=== PATIENT | female | born 1995 | race Caucasian/White ===

== ENCOUNTER 2017-05-27 09:43 | Observation (INO) ==
[2017-05-27] MEDS ORDERED: *HR* Morphine 2 MG/ML SYRINGE IVP ONE ×3 (10:11→11:17)
[2017-05-27] MEDS ORDERED: 0.9 % Sodium Chloride 1,000 ML IVC ONE ×3 (10:11→11:43)
[2017-05-27] MEDS ORDERED: Pantoprazole 40 MG VIAL IVP ONE (10:11)
[2017-05-27] MEDS ORDERED: Ondansetron 4 MG/2 ML VIAL IVP ONE (10:11)
--- NOTE | 2017-05-27 10:16 | Emergency Department Note ---
START Narrative - START START: I examined this patient and my medical decision-making was reviewed with the Resident Physician. I agree with the documented findings, disposition and treatment plan as described except to the extent set forth below. 22 yo F here for diffuse abd pain. will do workup with labs, urine, ct abdpelvis pain control
[2017-05-27 10:38] LABS: Basophils % 0.2 %; Eosinophils # 0.1 K/mcL (0.0-0.6); Eosinophils % 0.8 %; Hematocrit 41.1 % (35.3-44.9); Hemoglobin 13.3 g/dL (11.5-15.4); Immature Granulocytes % 0.3 % (0-4); Lymphocytes # 1.4 K/mcL (0.6-4.6); Lymphocytes % 10.5 %; Mean Corpuscular HGB Conc 32.4 g/dL (31.6-35.5); Mean Corpuscular Volume 83.4 fL (83.0-100.0); Mean Platelet Volume 9.9 fL (9.4-12.4); Monocytes # 0.5 K/mcL (0.0-1.3); Monocytes % 3.6 %; Neutrophils # 11.2 K/mcL (1.6-8.9); Platelet Count 261 K/mcL (140-400); Red Blood Count 4.93 M/mcL (3.82-4.97); Red Cell Distribution Width 13.6 % (11.5-14.5); Segmented Neutrophils % 84.6 %
[2017-05-27 10:51] LABS: BUN/Creatinine Ratio 13 (6-26); Bilirubin,Direct 0.1 mg/dL (0.0-0.5); Bilirubin,Total 0.3 mg/dL (0.2-1.2); Blood Urea Nitrogen 9 mg/dL (7-20); Calcium 9.2 mg/dL (8.6-10.8); Carbon Dioxide 21 mEq/L (19-29); Chloride 107 mEq/L (98-109); Glucose 88 mg/dL (70-99); Osmolality,Calculated 282 (280-300); Sodium 137 mEq/L (136-145); eGFR For African Americans > 60 (> 60); eGFR For Non-African Americans > 60 (> 60)
[2017-05-27 10:52] LABS: Alanine Aminotransferase 9 Units/L (0-55); Albumin 3.5 g/dL (3.5-5.0); Albumin/Globulin Ratio 1.1 (1.1-2.2); Alkaline Phosphatase 65 Units/L (38-126); Aspartate Amino Transferase 11 Units/L (5-34); Bilirubin,Indirect 0.2 mg/dL (0.0-1.2); Globulin 3.3 g/dL (2.4-3.5); Lipase 13 Units/L (8-78); Total Protein 6.8 g/dL (6.0-8.3)
[2017-05-27 10:54] LABS: Bilirubin,Urine Negative (Negative); Blood,Urine Negative (Negative); Color,Urine Dark Yellow (Yellow); Glucose,Urine (UA) Normal (Normal); Ketones,Urine Trace mg/dL (Negative); Leukocyte Esterase,Urine Moderate (Negative); Nitrite,Urine Negative (Negative); PH,Urine 6.5 pH Units (5.0-8.0); Protein,Urine Trace mg/dL (Neg-Trace); Urobilinogen,Urine Normal (Normal)
[2017-05-27 10:56] LABS: Bacteria,Urine Moderate per hpf (None-Few); Squamous Epithelial Cell,Urine Many per lpf (None-Few); WBC,Urine TNTC per hpf (0-3)
[2017-05-27 10:59] LABS: Clarity,Urine Slightly Hazy (Clear)
[2017-05-27 11:09] LABS: Mucus,Urine Moderate (Few); RBC,Urine 0-3 per hpf (0-3)
[2017-05-27] MEDS ORDERED: *HR* HYDROmorphone (PF) 1 MG/ML SYRINGE IVP ONE (11:42)
[2017-05-27] MEDS ORDERED: *HR* Promethazine 25 MG/ML VIAL IVP ONE (12:54)
--- NOTE | 2017-05-27 13:33 | Emergency Department Note ---
Disposition Clinical Impression: Pyelonephritis, Intractable abdominal pain Elevated white blood cell count Qualifiers: Leukocytosis type: unspecified Qualified Code(s): D72.829 - Elevated white blood cell count, unspecified Disposition: Admitted As Inpatient Condition: Fair Time of Disposition: 14:00 Abdominal Pain HPI - General Chief Complaint: ED Abdominal Pain Stated Complaint: LLQ pain Time Seen by Provider: 05/27/17 09:48 Source: patient Nursing Notes Reviewed: Yes Vital Signs Reviewed: Yes - History of Present Illness HPI Narrative: Patient 22-year-old female with sudden onset of abdominal pain at 0730 hrs. this morning. Patient has history of PCOS. Patient states pain is mostly left upper quadrant sharp, 10/10, patient reports nausea, vomiting but denies diarrhea. Patient states she has never had pain like this before. First day last menstrual period 12 May. Pt is a [id number] Patient also complains of vaginal discharge of watery grayish discharge. Malodorous. 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 Patient is a current every day smoker but denies alcohol and illicit drug use. Pain Scale: 9 - Related Data Home Medications Medication Instructions Recorded Confirmed Albuterol Sulfate [Proair Hfa] 2 puff IH Q4H PRN 05/27/17 05/27/17 Metformin HCl [Metformin HCl ER] 500 mg PO QPM 05/27/17 05/27/17 Spironolactone [Aldactone] 100 mg PO DAILY 05/27/17 05/27/17 Allergies Allergy/AdvReac Type Severity Reaction Status Date / Time Amoxicillin Allergy Rash Verified 11/07/16 15:23 divalproex sodium Allergy Irritable Verified 11/07/16 15:23 [From Depakote] Penicillins Allergy Rash Verified 11/07/16 15:23 aspirin AdvReac Hypertensio Verified 05/27/17 15:13 n All systems ED: reviewed and negative except as stated. Review of Systems: As Per HPI Constitutional: Reports: chills. Denies: fever, weakness Eyes: Denies: vision change ENT ED: Denies: congestion Cardiovascular: Denies: chest pain Respiratory: Denies: cough, dyspnea, wheezes Gastrointestinal: Reports: abdominal pain, nausea, vomiting. Denies: diarrhea Genitourinary: Reports: urgency, dysuria Musculoskeletal: Reports: back pain. Denies: neck pain Integumentary: Denies: rash Neurological: Denies: headache Endocrine: Reports: fatigue Hematological/Lymphatic: Denies: easy bleeding Abdominal Pain PMH - Past Medical History Medical history: Reports: no medical history Female Surgical History: Reports: other, Tonsillectomy, Adenoidectomy Psychiatric history: Reports: anxiety, depression - Social History Smoking status: Current every day smoker Drug use: Reports: none Physical Exam - General Limitations: no limitations General appearance: alert, in no apparent distress - Head Head exam: atraumatic, normocephalic, normal inspection - Eye Eye exam: Present: normal appearance, PERRL, EOMI - ENT ENT exam: normal exam, normal oropharynx, mucous membranes moist - Neck Neck exam: Present: normal inspection, full ROM, trachea midline - Chest Chest inspection: Present: normal inspection, symmetric chest wall rise - Respiratory Respiratory exam: Present: normal lung sounds bilaterally - Cardiovascular Cardiovascular exam: Present: regular rate, normal rhythm, normal heart sounds - Abdominal Exam Abdominal exam: Present: soft, tenderness (Gen. abdominal tenderness worse in the upper hemisphere of abdomen), normal bowel sounds. 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 Absent: erythema, tenderness, swelling, lesions, lacerations Speculum Exam: Present: normal speculum exam, cervical OS closed, vaginal discharge. Absent: erythema, cervical discharge, vaginal bleeding, foreign body , tissue, laceration Bimanual Exam: Present: adnexal tenderness, right adnexal tenderness, left adnexal tenderness. Absent: normal bimanual exam - Extremities Exam Extremities exam: Present: normal inspection, full ROM. Absent: tenderness, pedal edema - Back Exam Back exam: Present: CVA tenderness (R), CVA tenderness (L) - Neurological Exam Neurological exam: Present: alert, oriented X3 - Skin Skin exam: Present: warm, dry, intact, normal color Course - Reevaluation(s) Reevaluation #1: He is seen and examined. Workup for abdominal pain initiated. 10 mg morphine ordered for pain Time: 10:11 Reevaluation #2: Urine negative patient's been sent for CT abdomen and pelvis patient still having pain. 1 mg Dilaudid ordered for pain Time: 11:00 Reevaluation #3: Vaginal exam showed no purulent drainage from cervical loss, cervix had minor petechiae lower half. White watery discharge, the patient has cervical motion tenderness Time: 13:29 - Consultations Consultation #1: Dr. Pace the hospitalist is except the patient for admission Time: 13:45 Vital Signs Temperature 98.1 F 05/27/17 09:45 Pulse Rate 112 05/27/17 09:45 Respiratory Rate 18 05/27/17 09:45 Blood Pressure 142/86 05/27/17 09:45 O2 Sat by Pulse Oximetry 97 05/27/17 09:45 Temperature 101.9 F H 05/27/17 20:12 Pulse Rate 115 05/27/17 20:12 Respiratory Rate 20 05/27/17 20:12 Blood Pressure 105/69 05/27/17 20:12 O2 Sat by Pulse Oximetry 97 05/27/17 20:12 Oxygen Delivery Oxygen Delivery Room Air Abdominal Pain - MDM Narrative Medical decision making narrative: Patient with severe abdominal pain concerning for ectopic , PID, colitis, ruptured ovarian cyst, tubo-ovarian abscess, UTI/pyelonephritis, appendicitis Patient's workup showed: Labs positive for elevated white count of 13.3 the patient's vital signs show no fever and patient states she is not taking anything for her pain. Patient was tachycardia at 116 on arrival but currently has normal pulse, O2 sat 96%, and no shortness of breath or chest pain. Patient's imaging results Abdomen/Pelvis CT 05/27/17 11:15 IMPRESSION: 1. No acute abnormality in the abdomen/pelvis. 2. Fluid in the endometrial canal and small pelvic free fluid, likely physiologic. D/ / Jacob Bah MD / Jacob Bah MD Interpreting Provider: Jacob Bah MD Lactic acid negative Free fluid may be a result of history of polycystic ovarian syndrome. Patient states she had sudden onset of pain, nausea and vomiting. Patient's urinalysis is cysts for UTI and given patient's symptoms suspect pyelonephritis. Unfortunately patient's abdominal pain and tenderness to palpation and has not subsided with pain medications to include 10 mg of morphine and 2 mg of Dilaudid. Patient states her ears pain is is getting worse. The patient's workup was negative for abdominal pathology but it may just be too acute to tell at this time. Recommended admission for serial abdominal exams and pain control. I discussed this with the patient who accepts admission. Patient accepted for admission by Dr. Pace the hospitalist - Lab Data Lab results reviewed: Yes I reviewed the patient's lab results. Lab results narrative: Short CBC 05/27/17 Range/Units 10:28 WBC 13.3 H (4.3-11.1) K/mcL Hgb 13.3 (11.5-15.4) g/dL Hct 41.1 (35.3-44.9) % Plt Count 261 (140-400) K/mcL Neutrophils # 11.2 H (1.6-8.9) K/mcL BMP 05/27/17 Range/Units 10:28 Sodium 137 (136-145) mEq/L Potassium 4.0 (3.5-4.5) mEq/L Chloride 107 (98-109) mEq/L Carbon Dioxide 21 (19-29) mEq/L BUN 9 (7-20) mg/dL Creatinine 0.70 (0.57-1.11) mg/dL Glucose 88 (70-99) mg/dL Calcium 9.2 (8.6-10.8) mg/dL Cardiac Enzymes 05/27/17 Range/Units 19:21 Troponin I 0.01 (0-0.03) ng/mL Liver Function 05/27/17 Range/Units 10:28 Total Bilirubin 0.3 (0.2-1.2) mg/dL Direct Bilirubin 0.1 (0.0-0.5) mg/dL AST 11 (5-34) Units/L ALT 9 (0-55) Units/L Alkaline Phosphatase 65 (38-126) Units/L Albumin 3.5 (3.5-5.0) g/dL Urine 05/27/17 Range/Units 10:40 Urine Color Dark Yellow (Yellow) Urine Clarity Slightly Hazy (Clear) Urine pH 6.5 (5.0-8.0) pH Units Ur Specific [place] 1.030 H (1.010-1.025) Urine Protein Trace (Neg-Trace) mg/dL Urine Glucose (UA) Normal (Normal) mg/dL Result diagrams: 05/27/17 10:28 05/27/17 10:28 Lab Results 05/27/17 05/27/17 05/27/17 Range/Units 10:28 10:28 10:28 WBC 13.3 H (4.3-11.1) K/mcL RBC 4.93 (3.82-4.97) M/mcL Hgb 13.3 (11.5-15.4) g/dL Hct 41.1 (35.3-44.9) % MCV 83.4 (83.0-100.0) fL MCH 27.0 L (28.0-33.3) pg MCHC 32.4 (31.6-35.5) g/dL RDW 13.6 (11.5-14.5) % Plt Count 261 (140-400) K/mcL MPV 9.9 (9.4-12.4) fL Immature Gran % 0.3 (0-4) % Seg Neutrophils % 84.6 % Lymphocytes % 10.5 % Monocytes % 3.6 % Eosinophils % 0.8 % Basophils % 0.2 % Neutrophils # 11.2 H (1.6-8.9) K/mcL Lymphocytes # 1.4 (0.6-4.6) K/mcL Monocytes # 0.5 (0.0-1.3) K/mcL Eosinophils # 0.1 (0.0-0.6) K/mcL Basophils # 0.0 (0.0-0.2) K/mcL Sodium 137 (136-145) mEq/L Potassium 4.0 (3.5-4.5) mEq/L Chloride 107 (98-109) mEq/L Carbon Dioxide 21 (19-29) mEq/L BUN 9 (7-20) mg/dL Creatinine 0.70 (0.57-1.11) mg/dL Est GFR ( Amer) > 60 (> 60) Est GFR (Non-Af Amer) > 60 (> 60) BUN/Creatinine Ratio 13 (6-26) Glucose 88 (70-99) mg/dL Calculated Osmolality 282 (280-300) Lactic Acid 1.2 (0.5-2.2) mmol/L Calcium 9.2 (8.6-10.8) mg/dL Total Bilirubin 0.3 (0.2-1.2) mg/dL Direct Bilirubin 0.1 (0.0-0.5) mg/dL Indirect Bilirubin 0.2 (0.0-1.2) mg/dL AST 11 (5-34) Units/L ALT 9 (0-55) Units/L Alkaline Phosphatase 65 (38-126) Units/L Serum Total Protein 6.8 (6.0-8.3) g/dL Albumin 3.5 (3.5-5.0) g/dL Globulin 3.3 (2.4-3.5) g/dL Albumin/Globulin Ratio 1.1 (1.1-2.2) Lipase 13 (8-78) Units/L Ur Specimen Adequacy Urine Color (Yellow) Urine Clarity (Clear) Urine pH (5.0-8.0) pH Units Ur Specific [place] (1.010-1.025) Urine Protein (Neg-Trace) mg/dL Urine Glucose (UA) (Normal) mg/dL Urine Ketones (Negative) mg/dL Urine Blood (Negative) Urine Nitrite (Negative) Urine Bilirubin (Negative) Urine Urobilinogen (Normal) mg/dL Ur Leukocyte Esterase (Negative) Urine Microscopic RBC (0-3) per hpf Urine Microscopic WBC (0-3) per hpf Ur Squamous Epith Cells (None-Few) per lpf Urine Bacteria (None-Few) per hpf Hyaline Casts Urine Mucus (Few) Ur Culture Indicated? (NO) Urine Test (Negative) Lolis species DNA (Not Detect) Chlam trachomat DNA PCR (Not Detect) Gardnerella DNA Probe (Not Detect) N.gonorrhoeae DNA (PCR) (Not Detect) Trichomonas DNA Probe (Not Detect) 05/27/17 05/27/17 05/27/17 Range/Units 10:40 10:40 13:24 WBC (4.3-11.1) K/mcL RBC (3.82-4.97) M/mcL Hgb (11.5-15.4) g/dL Hct (35.3-44.9) % MCV (83.0-100.0) fL MCH (28.0-33.3) pg MCHC (31.6-35.5) g/dL RDW (11.5-14.5) % Plt Count (140-400) K/mcL MPV (9.4-12.4) fL Immature Gran % (0-4) % Seg Neutrophils % % Lymphocytes % % Monocytes % % Eosinophils % % Basophils % % Neutrophils # (1.6-8.9) K/mcL Lymphocytes # (0.6-4.6) K/mcL Monocytes # (0.0-1.3) K/mcL Eosinophils # (0.0-0.6) K/mcL Basophils # (0.0-0.2) K/mcL Sodium (136-145) mEq/L Potassium (3.5-4.5) mEq/L Chloride (98-109) mEq/L Carbon Dioxide (19-29) mEq/L BUN (7-20) mg/dL Creatinine (0.57-1.11) mg/dL Est GFR ( Amer) (> 60) Est GFR (Non-Af Amer) (> 60) BUN/Creatinine Ratio (6-26) Glucose (70-99) mg/dL Calculated Osmolality (280-300) Lactic Acid (0.5-2.2) mmol/L Calcium (8.6-10.8) mg/dL Total Bilirubin (0.2-1.2) mg/dL Direct Bilirubin (0.0-0.5) mg/dL Indirect Bilirubin (0.0-1.2) mg/dL AST (5-34) Units/L ALT (0-55) Units/L Alkaline Phosphatase (38-126) Units/L Serum Total Protein (6.0-8.3) g/dL Albumin (3.5-5.0) g/dL Globulin (2.4-3.5) g/dL Albumin/Globulin Ratio (1.1-2.2) Lipase (8-78) Units/L Ur Specimen Adequacy Urine Color Dark Yellow (Yellow) Urine Clarity Slightly Hazy (Clear) Urine pH 6.5 (5.0-8.0) pH Units Ur Specific [place] 1.030 H (1.010-1.025) Urine Protein Trace (Neg-Trace) mg/dL Urine Glucose (UA) Normal (Normal) mg/dL Urine Ketones Trace H (Negative) mg/dL Urine Blood Negative (Negative) Urine Nitrite Negative (Negative) Urine Bilirubin Negative (Negative) Urine Urobilinogen Normal (Normal) mg/dL Ur Leukocyte Esterase Moderate H (Negative) Urine Microscopic RBC 0-3 (0-3) per hpf Urine Microscopic WBC TNTC H (0-3) per hpf Ur Squamous Epith Cells Many H (None-Few) per lpf Urine Bacteria Moderate H (None-Few) per hpf Hyaline Casts Test Not Performed Urine Mucus Moderate H (Few) Ur Culture Indicated? YES A (NO) Urine Test Negative (Negative) Lolis species DNA Not Detected (Not Detect) Chlam trachomat DNA PCR NOT DETECTED (Not Detect) Gardnerella DNA Probe DETECTED A (Not Detect) N.gonorrhoeae DNA (PCR) NOT DETECTED (Not Detect) Trichomonas DNA Probe Not Detected (Not Detect) - Radiology Data Radiology results reviewed: Yes I reviewed the patient's radiology results. Abdomen/Pelvis CT 05/27/17 11:15
[2017-05-27 14:26] LABS: Gardnerella DNA ***DETECTED*** (Not Detect); Trichomonas DNA Not Detected (Not Detect)
[2017-05-27 14:27] LABS: Candida DNA Not Detected (Not Detect)
[2017-05-27] MEDS: *HR* HYDROmorphone (PF) 1 MG/ML SYRINGE IVP PRN ×3 (16:54→23:00)
[2017-05-27] MEDS: 0.9 % Sodium Chloride 1,000 ML IVC SCH (16:55)
[2017-05-27] MEDS ORDERED: Acetaminophen 325 MG TABLET PO PRN ×2 (19:06→19:20)
[2017-05-27] MEDS ORDERED: Naloxone 0.4 MG/ML INJ IVP PRN (19:06)
[2017-05-27] MEDS ORDERED: Ipratropium/Albuterol Neb 3 ML IH PRN (19:10)
[2017-05-27] MEDS ORDERED: Ibuprofen 600 MG TABLET PO PRN (19:17)
[2017-05-27] MEDS ORDERED: Acetaminophen 650 MG RECTAL SUPP RC PRN (19:19)
--- NOTE | 2017-05-27 19:54 | Event Note ---
Date of Encounter: 05/27/17 Time of Encounter: 19:52 I personally saw the patient and examined and discussed that with advanced nurse practitioner and negative with the plan. Please refer to the detailed H& P for details. Briefly she is a young female who is coming in with bilateral abdominal pain and has been diagnosed with pyelonephritis as CT abdomen is negative however it was noncontrast CT. We will do an ultrasound to rule out any hydronephrosis S patient is complaining of quite a bit of pain. Her abdominal examination showed soft belly and tenderness at both CVA angles. However no rebound tenderness. IV Rocephin and Flagyl was started as patient is concern for STD and Gardnerella is positive. Will follow the remaining cultures and see if there is any need to add doxycycline.
--- NOTE | 2017-05-27 20:41 | Internal Med History&Physical ---
<Jasper Paez - Last Filed: 05/27/17 21:28> Date of Encounter: 05/27/17 Time of Encounter: 18:00 Assessment and Plan (1) Sepsis Status: Acute Patient presents with sepsis due to current white blood count of 13.3, temperature of 102.9F, and heart rate of 112 bpm. Patient has been diagnosed with suspected pyelonephritis based on current symptoms. STD panel in ED shows positive Gardnerella infection. Stat blood cultures 2 ordered. Timed lactic acids ordered. Upon admission, patient's temperature was 98.1F. Patient's current temperature is 102.9 rectally. Tylenol 650 mg every 6 by mouth ordered and is to be alternated with Motrin 600 mg every 6 for fever control. Tylenol 650 rectal every 6 to be replaced for by mouth Tylenol if necessary. Cooling blanket ordered and placed on patient with gradient setting 98.1F. Patient monitored closely for signs of increasing fever. Will ice patient's armpits and groin if needed. IV 0.9 NS ordered per sepsis protocol. Supplemental O2 and SpO2 monitoring. Continuous cardiac telemetry ordered. Follow-up labs ordered. Patient to be monitored closely for signs of increasing infection, cardiac, and/ or respiratory distress. Qualifiers: Sepsis type: sepsis due to unspecified organism Qualified Code(s): A41.9 - Sepsis, unspecified organism (2) Pyelonephritis Status: Acute Current symptoms of severe abdominal pain patient presents with acute and suspected pyelonephritis based on current symptoms of severe abdominal pain radiating to back and groin. Retroperitoneal complete ultrasound ordered. Abdominal/pelvis ultrasound ordered. IV Rocephin 1000 mg daily ordered in addition to IV Flagyl 500 mg every 8 for infection coverage. Will monitor patient's I&O. Urine culture ordered based on indicative U/A in ED. Will await results and ajust antibiotic coverage if necessary. (3) Gardnerella infection Status: Acute Patient presents with positive Gardnerella infection based on STD panel taken in ED. IV Flagyl 500 mg every 8 ordered for infection coverage. (4) Abdominal pain Status: Acute Patient presents with acute abdominal pain accompanied by nausea and vomiting that she states began at 7:30 this morning. She has history of PCOS. Patient reports abdominal pain is generalized. Pyelonephritis is suspected however CT of abdomen and ED is negative due to non-contrast imaging. Ultrasound of abdomen and pelvis ordered. Retroperitoneal complete ultrasound ordered. Stair -step pain medications ordered for pain management. Patient to be nothing by mouth except for ice chips. Qualifiers: Abdominal location: generalized Qualified Code(s): R10.84 - Generalized abdominal pain (5) Fever Status: Acute Patient presents with acute fever which has increased from admission to ED. Upon admission, patient's temperature was 98.1F. Patient's current temperature is 102.9 rectally. Tylenol 650 mg every 6 by mouth ordered and is to be alternated with Motrin 600 mg every 6 for fever control. Tylenol 650 rectal every 6 to be replaced for by mouth Tylenol if necessary. Cooling blanket ordered and placed on patient with gradient setting 98.1F. Patient monitored closely for signs of increasing fever. While base patient's armpits and groin if needed. Qualifiers: Fever type: due to other condition Qualified Code(s): R50.81 - Fever presenting with conditions classified elsewhere (6) Nausea & vomiting Status: Acute Patient presents with acute nausea and vomiting related to abdominal pain. Patient reports nausea, vomiting, and abdominal pain approximately 7:30 this morning. Nothing by mouth status except ice chips. IVP Zofran every 6 when necessary. Monitor I&O and daily weight. Qualifiers: Vomiting type: cyclical vomiting Vomiting Intractability: non-intractable Qualified Code(s): G43.A0 - Cyclical vomiting, not intractable (7) DVT prophylaxis Status: Acute Patient to be placed on DVT prophylaxis due to current admission protocol and bedrest status. Heparin 5000 units SQ every 8 ordered. Internal Medicine - H&P: HPI Chief complaint: Abdominal Pain Admitted From: Emergency Dept Plans for Post Hospital Care: Home History of present illness: Ms. Pavon is a 22 year old female who presents from the ED with chief complaint of severe and sudden onset of abdominal pain, nausea, and vomiting at 7:30 this morning. Patient has history of PCOS. Patient describes pain as generalized abdominal pain at 10 out of 10 on pain scale and states she has never had pain like this before patient's test in ED was negative. Patient also reports during exam she currently has vaginal discharge that is grayish, clumpy, and stretchy in nature as well as malodorous. Patient denies diarrhea, unusual bleeding, recent illness, weakness, changes in vision, cough, congestion, chest pain, shortness of breath, headache, presyncope, or syncope. Patient reports she is occurring every day smoker one half pack per day but denies alcohol or illicit drug abuse. Patient currently reports no medical history. Information obtained from patient, chart review, and previous medical reports. Patient currently meets sepsis criteria based on white blood count of 13.3 and heart rate of 112 bpm while in the ED. Pyelonephritis is suspected based on patient's current symptoms however CT in ED was negative due to being noncontrast CT. Will order abdomen/pelvis ultrasound as well as retrograde peritoneal complete ultrasound. STD panel and EDV is positive for Gardnerella. Patient is at high risk for further morbidity based on sepsis criteria and will be placed as inpatient status. Time spent with patient greater than 40 minutes. Past Med Surg Social Fam HX - Past Medical History Source: patient, old records reviewed Medical history: no medical history Psychiatric history: anxiety, depression - Past Surgical History Surgical History: other (Tonsillectoomy, adenoidectomy) - Social History Smoking Status: Current every day smoker Packs per day: 1/2 PPD Smokeless Tobacco Status: No Alcohol use: none Drug use: none Current living situation: Home, With Family Activity Level: Independent ambulation Recent Out of Country Travel Within the Last 8 Weeks: No Exposure or Possible Exposure to Illness During Travel: No - Family History Father Race: Family Member Ethnicity: Non- Living Status: Age at : 42 Cause of : HF Hx Family Cardiac Disorders: Yes (HTN, HLD, MS, Stroke, HF, Aplastic anemia) Hx Family Respiratory Disorders: Yes (COPD) Hx Family Endocrine Disorder: Yes (DM) Mother Race: Family Member Ethnicity: Non- Living Status: Still Living Hx Family Cardiac Disorders: Yes (Stroke, HD) Hx Family Respiratory Disorders: Yes (COPD) Brother Race: Family Member Ethnicity: Non- Living Status: Still Living Hx Family Genitourinary Disorders: Yes (Endometriosis) Internal Medicine - H&P: Meds Albuterol Sulfate [Proair Hfa] 2 puff IH Q4H PRN 05/27/17 [History] Metformin HCl [Metformin HCl ER] 500 mg PO QPM 05/27/17 [History] Spironolactone [Aldactone] 100 mg PO DAILY 05/27/17 [History] Acetaminophen w/Cod 300-30 mg [Tylenol w/Codeine #3] 1 tab PO Q6HR PRN #30 tab 05/30/17 [Rx] Ciprofloxacin [Cipro] 500 mg PO BID #32 tablet 05/30/17 [Rx] Ibuprofen [Motrin] 600 mg PO TID PRN #30 tab 05/30/17 [Rx] Ondansetron ODT [Zofran ODT] 4 mg SL Q4HR PRN #30 tab.rapdis 05/30/17 [Rx] metroNIDAZOLE [Flagyl] 500 mg PO BID #12 tablet 05/30/17 [Rx] 3 Allergy/AdvReac Type Severity Reaction Status Date / Time Amoxicillin Allergy Rash Verified 11/07/16 15:23 divalproex sodium Allergy Irritable Verified 11/07/16 15:23 [From Depakote] Penicillins Allergy Rash Verified 11/07/16 15:23 aspirin AdvReac Hypertensio Verified 05/27/17 15:13 n All Systems PM: A 10-system review of systems was performed and is negative for pertinent findings except as documented above in the HPI. - Constitutional Constitutional: as per HPI, chills, fever(s), weakness - EENT Eyes: no change in vision, no discharge, no pain, no photophobia Ears: no ear discharge, no ear pain, no tinnitus Nose, mouth and throat: no dysphagia, no nasal discharge, no neck pain, no sore throat - Breasts Breasts: as per HPI - Cardiovascular Cardiovascular ROS IM: as per HPI, chest pain, dyspnea - Respiratory Respiratory: as per HPI, dyspnea - Gastrointestinal Gastrointestinal: as per HPI, abdominal pain, nausea, vomiting - Genitourinary Genitourinary: no change in urinary stream, no dysuria, no flank pain, no hematuria Menstruation: as per HPI - Musculoskeletal Musculoskeletal ROS IM: no numbness, no tingling - Integumentary Integumentary IM: no rash, no unusual bruising - Neurological Neurological ROS: no confusion, no convulsions, no focal weakness, no numbness, no tingling, no tremor(s) - Psychiatric Psychiatric: as per HPI, anxiety, depression - Endocrine Endocrine IM: as per HPI - Hematologic/Lymphatic Hematologic/Lymphatic: no easy bruising - Allergic/Immunologic Allergic/Immunologic: as per HPI - Constitutional Vitals: Temp Pulse Resp BP Pulse Ox 101.9 F H 115 20 105/69 97 05/27/17 20:12 05/27/17 20:12 05/27/17 20:12 05/27/17 20:12 05/27/17 20:12 General appearance: Present: cooperative, A&O X 3, morbidly obese, severe distress (Abdominal pain, nausea), answers questions appropriately - Head Head exam: Present: atraumatic, normocephalic - Eye Eye exam: Present: PERRL, conjuntiva pink, sclera anicteric Pupils: Present: PERRL - ENT ENT exam: Present: normal exam, normal external ear exam - Neck Neck exam general surgery: Present: normal inspection, supple, trachea midline. Absent: lymphadenopathy - Respiratory Respiratory exam: Present: CTAB. Absent: accessory muscle use, rales, rhonchi, wheezes - Cardiovascular Cardiovascular exam: Present: RRR, +S1, +S2. Absent: diastolic murmur, gallop, rubs, systolic murmur - GI/Abdominal GI/Abdominal exam: Present: diminished bowel sounds, guarding, soft, tenderness - Rectal Rectal exam: Present: deferred - Additional comments: exam deferred. - Extremities Exam Extremities exam: Present: warm, radial pulses palpable and symmetrical. Absent : calf tenderness, cyanotic, pedal edema - Back Exam Back exam: Present: normal inspection - Neurological Exam Neurological exam: Present: CN II-XII intact, oriented X3, no focal deficits. Absent: pronater drift, facial droop, speech deficit - Psychiatric Psychiatric exam: Present: anxious - Skin Skin exam: Present: dry, intact Internal Med - H&P Results - Labs CBC & Chem 7: 05/27/17 10:28 05/27/17 10:28 Labs: Cardiac Enzymes 05/27/17 Range/Units 19:21 Troponin I 0.01 (0-0.03) ng/mL - Diagnostic Studies CT scan - abdomen Additional comments: Impressions Abdomen/Pelvis CT 05/27/17 11:15 IMPRESSION: 1. No acute abnormality in the abdomen/pelvis. 2. Fluid in the endometrial canal and small pelvic free fluid, likely physiologic. D/ / Jacob Bah MD / Jacob Bah MD Interpreting Provider: Jacob Bah MD <Daphne Pace - Last Filed: 05/31/17 04:57> Date of Encounter: 05/31/17 Internal Medicine - H&P: HPI History of present illness: Ms. Pavon is a 22 year old female All Systems PM: A 10-system review of systems was performed and is negative for pertinent findings except as documented above in the HPI. - Constitutional Vitals: Temp Pulse Resp BP Pulse Ox 98.0 F 85 16 111/77 94 05/30/17 08:05 05/30/17 08:05 05/30/17 08:05 05/30/17 08:05 05/30/17 08:05 Internal Med - H&P Results - Labs CBC & Chem 7: 05/29/17 03:19 05/29/17 03:19 - Impressions ITS Impressions Abdomen Ultrasound 05/28/17 16:00 IMPRESSION: Likely mild sludge within the gallbladder lumen, otherwise unremarkable ultrasound. No evidence for hydronephrosis. No echogenic renal stones identified. D/ / Prince Yanez MD / Prince Yanez MD Interpreting Provider: Prince Yanez MD - Attending Attestation I have independently and personally seen the patient and examined the patient. Examination showed chest clear abdomen mildly tender. Plan discussed with advanced nurse practitioner.
[2017-05-27] MEDS: Pantoprazole 40 MG VIAL IVP SCH (22:01)
[2017-05-27] MEDS: *HR* Heparin 5,000 UNIT/ML VIAL SQ SCH (22:02)
[2017-05-27 23:06] LABS: Amphetamine Screen,Urine Negative ng/mL (Cutoff=1000); Barbiturate Screen,Urine Negative ng/mL (Cutoff=200); Benzodiazepines Screen,Urine Negative ng/mL (Cutoff=200); Cannabinoid Screen,Urine Negative ng/mL (Cutoff = 50); Cocaine Screen,Urine Negative ng/mL (Cutoff= 300); Opiate Screen,Urine Positive ng/mL (Cutoff=300); Phencyclidine Screen,Urine Negative ng/mL (Cutoff=25)
[2017-05-28 01:58] LABS: Basophils % 0.2 %; Eosinophils # 0.1 K/mcL (0.0-0.6); Eosinophils % 1.3 %; Hematocrit 39.2 % (35.3-44.9); Hemoglobin 12.4 g/dL (11.5-15.4); Immature Granulocytes % 0.6 % (0-4); Lymphocytes # 1.6 K/mcL (0.6-4.6); Lymphocytes % 17.9 %; Mean Corpuscular HGB Conc 31.6 g/dL (31.6-35.5); Mean Corpuscular Hemoglobin 26.6 pg (28.0-33.3); Mean Corpuscular Volume 84.1 fL (83.0-100.0); Mean Platelet Volume 12.1 fL (9.4-12.4); Monocytes # 0.5 K/mcL (0.0-1.3); Monocytes % 5.2 %; Neutrophils # 6.6 K/mcL (1.6-8.9); Platelet Count 138 K/mcL (140-400); Red Blood Count 4.66 M/mcL (3.82-4.97); Red Cell Distribution Width 13.7 % (11.5-14.5); Segmented Neutrophils % 74.8 %
[2017-05-28] MEDS: *HR* HYDROmorphone (PF) 1 MG/ML SYRINGE IVP PRN ×8 (02:00→22:29)
[2017-05-28 02:11] LABS: BUN/Creatinine Ratio 12 (6-26); Blood Urea Nitrogen 8 mg/dL (7-20); Carbon Dioxide 19 mEq/L (19-29); Chloride 107 mEq/L (98-109); Chol/HDL Ratio 4.1 (0-4.9); Cholesterol 148 mg/dL (< 200); Glucose 82 mg/dL (70-99); HDL Cholesterol 36 mg/dL (40-59); LDL Cholesterol,Calculated 93 mg/dL (0-99); Magnesium 1.6 mg/dL (1.6-2.6); Osmolality,Calculated 277 (280-300); Sodium 135 mEq/L (136-145); Triglycerides 94 mg/dL (< 150); eGFR For African Americans > 60 (> 60); eGFR For Non-African Americans > 60 (> 60)
[2017-05-28 02:15] LABS: Calcium 7.7 mg/dL (8.6-10.8)
[2017-05-28] MEDS: *HR* Heparin 5,000 UNIT/ML VIAL SQ SCH ×3 (05:49→20:29)
[2017-05-28] MEDS: Pantoprazole 40 MG VIAL IVP SCH ×2 (07:48→20:21)
[2017-05-28] MEDS: MetroNIDAZOLE 500 MG/100 ML 500 MG/100 ML BAG IVPB SCH ×4 (07:52→22:33)
[2017-05-28] MEDS: 0.9 % Sodium Chloride 1,000 ML IVC SCH ×3 (07:52→19:56)
[2017-05-28] MEDS: Nicotine 21 MG PATCH.TD24 TD SCH (07:52)
[2017-05-28] MEDS ORDERED: Acetaminophen 325 MG TABLET PO PRN (15:03)
--- NOTE | 2017-05-28 15:53 | Internal Med Progress Note ---
Date of Encounter: 05/28/17 Time of Encounter: 15:51 - Assessment and plan (1) Sepsis Current Visit: Yes Status: Acute Assessment and plan: Sepsis secondary to possible pyelonephritis/UTI with Proteus worse on the left ( clinically symptomatic although CT scan did not show pyelonephritis) in combination with Gardnerella vaginosis Continue Rocephin day 2 Culture pending Continue IV fluids, Dilaudid and Toradol for pain Ultrasound of the abdomen is pending CT scan of the abdomen showed: 1. No acute abnormality in the abdomen/pelvis. 2. Fluid in the endometrial canal and small pelvic free fluid, likely physiologic. High risk due to sepsis Qualifiers: Sepsis type: sepsis due to unspecified organism Qualified Code(s): A41.9 - Sepsis, unspecified organism (2) Fever Current Visit: Yes Status: Acute Assessment and plan: Secondary to sepsis Qualifiers: Fever type: due to other condition Qualified Code(s): R50.81 - Fever presenting with conditions classified elsewhere (3) Pyelonephritis Current Visit: Yes Status: Acute (4) Gardnerella infection Current Visit: Yes Status: Acute Assessment and plan: Continue metronidazole day 2 May be discharged the patient on a 500 mg twice a day to complete 7 days (5) Migraine Current Visit: Yes Status: Acute Qualifiers: Migraine type: unspecified Status migrainosus presence: without status migrainosus Intractability: not intractable Qualified Code(s): G43.909 - Migraine, unspecified, not intractable, without status migrainosus (6) Anxiety Current Visit: Yes Status: Acute - Subjective Interval history: Complains of severe abdominal pain in both right upper and left upper quadrants also both flanks, dysuria, chills, mild nausea, denies any chest pain or shortness of breath. Had fevers yesterday, complains of a severe headache - Constitutional Vitals: Temp Pulse Resp BP Pulse Ox 98.4 F 77 16 106/63 100 05/28/17 11:24 05/28/17 11:24 05/28/17 11:24 05/28/17 11:24 05/28/17 11:24 General appearance: Present: cooperative, A&O X 3, morbidly obese, severe distress (Abdominal pain, nausea), answers questions appropriately - Head Head exam: Present: atraumatic, normocephalic - Eye Eye exam: Present: PERRL, conjuntiva pink, sclera anicteric Pupils: Present: PERRL - Neck Neck exam general surgery: Present: supple, trachea midline. Absent: lymphadenopathy - Respiratory Respiratory exam: Present: CTAB. Absent: accessory muscle use, rales, rhonchi, wheezes - Cardiovascular Cardiovascular exam: Present: RRR, +S1, +S2. Absent: diastolic murmur, gallop, rubs, systolic murmur - GI/Abdominal GI/Abdominal exam: Present: distended, normal bowel sounds, soft, tenderness ( Left upper quadrant tenderness, possible rebound), no peritoneal signs - Extremities Exam Extremities exam: Present: warm, radial pulses palpable and symmetrical. Absent : calf tenderness, cyanotic, pedal edema - Neurological Exam Neurological exam: Present: CN II-XII intact, oriented X3, no focal deficits. Absent: pronater drift, facial droop, speech deficit - Skin Skin exam: Present: dry, intact Internal Medicine: Result - Labs CBC & Chem 7: 05/28/17 01:26 05/28/17 01:26 Labs: Short CBC 05/28/17 Range/Units 01:26 WBC 8.8 (4.3-11.1) K/mcL Hgb 12.4 (11.5-15.4) g/dL Hct 39.2 (35.3-44.9) % Plt Count 138 L (140-400) K/mcL Neutrophils # 6.6 (1.6-8.9) K/mcL BMP 05/28/17 01:26 Sodium 135 L Potassium 4.0 Chloride 107 Carbon Dioxide 19 BUN 8 Creatinine 0.67 Glucose 82 Calcium 7.7 L D Cardiac Enzymes 05/27/17 05/28/17 05/28/17 Range/Units 19:21 01:26 07:31 Troponin I 0.01 0.00 0.00 (0-0.03) ng/mL Consult Discharge Plan - Plan Referrals: NONE,PCP [Primary Care Provider] -
[2017-05-28] MEDS ORDERED: Acetaminophen 325 MG TABLET PO SCH (16:00)
[2017-05-28] MEDS: Ketorolac 30 MG/ML VIAL IVP PRN (17:02)
[2017-05-29] MEDS: *HR* HYDROmorphone (PF) 1 MG/ML SYRINGE IVP PRN ×9 (02:07→23:31)
[2017-05-29] MEDS: 0.9 % Sodium Chloride 1,000 ML IVC SCH ×3 (02:07→19:52)
[2017-05-29 03:45] LABS: Hematocrit 37.3 % (35.3-44.9); Hemoglobin 11.6 g/dL (11.5-15.4); Mean Corpuscular HGB Conc 31.1 g/dL (31.6-35.5); Mean Corpuscular Hemoglobin 26.7 pg (28.0-33.3); Mean Corpuscular Volume 85.7 fL (83.0-100.0); Mean Platelet Volume 10.4 fL (9.4-12.4); Platelet Count 198 K/mcL (140-400); Red Blood Count 4.35 M/mcL (3.82-4.97); Red Cell Distribution Width 13.5 % (11.5-14.5)
[2017-05-29 03:48] LABS: BUN/Creatinine Ratio 9 (6-26); Blood Urea Nitrogen 6 mg/dL (7-20); Carbon Dioxide 22 mEq/L (19-29); Chloride 109 mEq/L (98-109); Glucose 92 mg/dL (70-99); Osmolality,Calculated 285 (280-300); Potassium 3.7 mEq/L (3.5-4.5); Sodium 139 mEq/L (136-145); eGFR For African Americans > 60 (> 60); eGFR For Non-African Americans > 60 (> 60)
[2017-05-29] MEDS: *HR* Heparin 5,000 UNIT/ML VIAL SQ SCH ×3 (05:31→20:50)
[2017-05-29] MEDS: Nicotine 21 MG PATCH.TD24 TD SCH (09:00)
[2017-05-29] MEDS: Pantoprazole 40 MG VIAL IVP SCH ×2 (09:01→20:49)
[2017-05-29] MEDS: MetroNIDAZOLE 500 MG/100 ML 500 MG/100 ML BAG IVPB SCH ×3 (09:02→23:31)
--- NOTE | 2017-05-29 10:20 | Internal Med Progress Note ---
Date of Encounter: 05/29/17 Time of Encounter: 10:18 - Assessment and plan (1) Sepsis Current Visit: Yes Status: Acute Assessment and plan: Sepsis secondary to possible pyelonephritis/UTI with Proteus worse on the left ( clinically symptomatic although CT scan did not show pyelonephritis) in combination with Gardnerella vaginosis Continue Rocephin day 3 Culture pending Continue IV fluids, Dilaudid and Toradol for pain Ultrasound of the abdomen is pending CT scan of the abdomen showed: 1. No acute abnormality in the abdomen/pelvis. 2. Fluid in the endometrial canal and small pelvic free fluid, likely physiologic. Proteus is resistant to nitrofurantoin and tigecycline: The patient is allergic to penicillin High risk due to sepsis Qualifiers: Sepsis type: sepsis due to unspecified organism Qualified Code(s): A41.9 - Sepsis, unspecified organism (2) Fever Current Visit: Yes Status: Acute Assessment and plan: Secondary to sepsis Qualifiers: Fever type: due to other condition Qualified Code(s): R50.81 - Fever presenting with conditions classified elsewhere (3) Pyelonephritis Current Visit: Yes Status: Acute (4) Gardnerella infection Current Visit: Yes Status: Acute Assessment and plan: Continue metronidazole day 3 May be discharged on 500 mg twice a day to complete 7 days (5) Migraine Current Visit: Yes Status: Acute Qualifiers: Migraine type: unspecified Status migrainosus presence: without status migrainosus Intractability: not intractable Qualified Code(s): G43.909 - Migraine, unspecified, not intractable, without status migrainosus (6) Anxiety Current Visit: Yes Status: Acute - Subjective Interval history: Still complaining of severe abdominal pain in both right upper and left upper quadrants also both flanks, dysuria, chills, mild nausea, denies any chest pain or shortness of breath. No fever since yesterday, complains of a severe headache - Constitutional Vitals: Temp Pulse Resp BP Pulse Ox 98.3 F 87 16 100/68 91 05/29/17 07:38 05/29/17 07:38 05/29/17 07:38 05/29/17 07:38 05/29/17 09:00 General appearance: Present: cooperative, A&O X 3, morbidly obese, severe distress (Abdominal pain, nausea), answers questions appropriately - Head Head exam: Present: atraumatic, normocephalic - Eye Eye exam: Present: PERRL, conjuntiva pink, sclera anicteric Pupils: Present: PERRL - Neck Neck exam general surgery: Present: supple, trachea midline. Absent: lymphadenopathy - Respiratory Respiratory exam: Present: CTAB. Absent: accessory muscle use, rales, rhonchi, wheezes - Cardiovascular Cardiovascular exam: Present: RRR, +S1, +S2. Absent: diastolic murmur, gallop, rubs, systolic murmur - GI/Abdominal GI/Abdominal exam: Present: distended, normal bowel sounds, soft, tenderness ( Left upper quadrant tenderness, no rebound), no peritoneal signs - Extremities Exam Extremities exam: Present: warm, radial pulses palpable and symmetrical. Absent : calf tenderness, cyanotic, pedal edema - Neurological Exam Neurological exam: Present: CN II-XII intact, oriented X3, no focal deficits. Absent: pronater drift, facial droop, speech deficit - Skin Skin exam: Present: dry, intact Internal Medicine: Result - Labs CBC & Chem 7: 05/29/17 03:19 05/29/17 03:19 Labs: Short CBC 05/29/17 Range/Units 03:19 WBC 5.1 (4.3-11.1) K/mcL Hgb 11.6 (11.5-15.4) g/dL Hct 37.3 (35.3-44.9) % Plt Count 198 (140-400) K/mcL BMP 05/29/17 03:19 Sodium 139 Potassium 3.7 Chloride 109 Carbon Dioxide 22 BUN 6 L Creatinine 0.67 Glucose 92 Calcium 8.0 L - Impressions Impressions Abdomen Ultrasound 05/28/17 16:00 IMPRESSION: Likely mild sludge within the gallbladder lumen, otherwise unremarkable ultrasound. No evidence for hydronephrosis. No echogenic renal stones identified. D/ / Prince Yanez MD / Prince Yanez MD Interpreting Provider: Prince Yanez MD Consult Discharge Plan - Plan Referrals: NONE,PCP [Primary Care Provider] -
[2017-05-29] MEDS: Ketorolac 30 MG/ML VIAL IVP PRN ×2 (12:56→20:55)
[2017-05-29] MEDS: Ondansetron 4 MG/2 ML VIAL IVP PRN (18:19)
[2017-05-30] MEDS: *HR* HYDROmorphone (PF) 1 MG/ML SYRINGE IVP PRN ×2 (03:20→09:18)
[2017-05-30] MEDS: 0.9 % Sodium Chloride 1,000 ML IVC SCH ×2 (03:21→12:37)
[2017-05-30] MEDS: *HR* Heparin 5,000 UNIT/ML VIAL SQ SCH (05:11)
[2017-05-30] MEDS: Ondansetron 4 MG/2 ML VIAL IVP PRN (07:55)
[2017-05-30] MEDS: MetroNIDAZOLE 500 MG/100 ML 500 MG/100 ML BAG IVPB SCH (07:59)
[2017-05-30] MEDS: Nicotine 21 MG PATCH.TD24 TD SCH (07:59)
[2017-05-30] MEDS: Pantoprazole 40 MG VIAL IVP SCH (07:59)
[2017-05-30 08:06] VITALS: BP 111/77
[2017-05-30] MEDS ORDERED: Lactulose Oral Soln 20 GM/30 ML UDC PO ONE (08:40)
[2017-05-30] MEDS ORDERED: *HR* Acetaminophen w/Cod 300-30 mg 1 TAB TABLET PO PRN (08:41)
--- NOTE | 2017-05-30 08:47 | Discharge Summary ---
Date of Encounter: 05/30/17 Time of Encounter: 08:42 - Discharge Diagnosis (1) Sepsis Priority: Primary Status: Acute Comments: Sepsis secondary to possible pyelonephritis/UTI with Proteus worse on the left ( clinically symptomatic although CT scan did not show pyelonephritis) in combination with Gardnerella vaginosis Qualifiers: Sepsis type: sepsis due to unspecified organism Qualified Code(s): A41.9 - Sepsis, unspecified organism (2) Fever Priority: Secondary Status: Acute Qualifiers: Fever type: due to other condition Qualified Code(s): R50.81 - Fever presenting with conditions classified elsewhere (3) Pyelonephritis Priority: Primary Status: Acute (4) Gardnerella infection Priority: Primary Status: Acute (5) Migraine Priority: Secondary Status: Acute Qualifiers: Migraine type: unspecified Status migrainosus presence: without status migrainosus Intractability: not intractable Qualified Code(s): G43.909 - Migraine, unspecified, not intractable, without status migrainosus (6) Anxiety Priority: Secondary Status: Acute - Discharge Medications Prescriptions: Ondansetron ODT [Zofran ODT] 4 mg SL Q4HR PRN #30 tab.rapdis PRN Reason: nausea Acetaminophen w/Cod 300-30 mg [Tylenol w/Codeine #3] 1 tab PO Q6HR PRN #30 tab PRN Reason: moderate pain Ciprofloxacin [Cipro] 500 mg PO BID #32 tablet Ibuprofen [Motrin] 600 mg PO TID PRN #30 tab PRN Reason: Fever metroNIDAZOLE [Flagyl] 500 mg PO BID #12 tablet Home Medications: Albuterol Sulfate [Proair Hfa] 2 puff IH Q4H PRN 05/27/17 [History] Metformin HCl [Metformin HCl ER] 500 mg PO QPM 05/27/17 [History] Spironolactone [Aldactone] 100 mg PO DAILY 05/27/17 [History] Acetaminophen w/Cod 300-30 mg [Tylenol w/Codeine #3] 1 tab PO Q6HR PRN #30 tab 05/30/17 [Rx] Ciprofloxacin [Cipro] 500 mg PO BID #32 tablet 05/30/17 [Rx] Ibuprofen [Motrin] 600 mg PO TID PRN #30 tab 05/30/17 [Rx] Ondansetron ODT [Zofran ODT] 4 mg SL Q4HR PRN #30 tab.rapdis 05/30/17 [Rx] metroNIDAZOLE [Flagyl] 500 mg PO BID #12 tablet 05/30/17 [Rx] Allergies/Adverse Reactions: 3 Allergy/AdvReac Type Severity Reaction Status Date / Time Amoxicillin Allergy Rash Verified 11/07/16 15:23 divalproex sodium Allergy Irritable Verified 11/07/16 15:23 [From Depakote] Penicillins Allergy Rash Verified 11/07/16 15:23 aspirin AdvReac Hypertensio Verified 05/27/17 15:13 n Procedures/tests Complete & Pending: Procedures Performed prior 72 hours Category Date Time Status US abdomen complete [US] Routine Exams 05/28/17 16:00 Completed Date of admission: 05/27/17 15:14 Primary care physician: PCP NONE - Patient Status Disposition: Home, Self-Care Condition: Good Overall status at discharge: patient is back to baseline - Discharge Instructions Follow Up With: NONE,PCP [Primary Care Provider] - Additional Instructions: Follow-up with primary care physician within the next 7 days. Complete 4 more days of Flagyl and do not drink alcohol while taking Flagyl. Complete 16 more days of ciprofloxacin. - Diet and Activity Activity: increase activity as tolerated Diet: regular diet Hospital course: Ms. Pavon is a 22 year old female with a past medical history of PCOS and tobacco use, who presented to the ED with a chief a complaint of severe and sudden onset of abdominal pain, nausea, and vomiting. Described the pain as generalized abdominal pain at 10 out of 10 on pain scale and stated she had never had pain like this before. Patient also reported during exam she currently has vaginal discharge that is grayish, clumpy, and stretchy in nature as well as malodorous. Denied diarrhea, unusual bleeding, recent illness, weakness, changes in vision, cough, congestion, chest pain, shortness of breath , headache, presyncope, or syncope. White blood count of 13.3 and heart rate of 112 bpm while in the ED. Pyelonephritis is suspected based on patient's current symptoms however CT in ED was negative. Tested positive for Gardnerella. Was started on Flagyl and on Rocephin for UTI. Urine culture grew Proteus resistant to nitrofurantoin and tigecycline, but sensitive to Rocephin. The patient's condition has improved although she still complaining of some back pain and is stable to be discharged. She will complete 16 more days of ciprofloxacin under the risk of developing renal stones from Proteus and 4 more days of Flagyl. Time spent discussing smoking cessation with patient: 3 to 10 minutes - Time Spent with Patient Total time spent providing and/or coordinating discharge services: Greater than 30 minutes (40 min) - Constitutional Vitals: Temp Pulse Resp BP Pulse Ox 98.0 F 85 16 111/77 94 05/30/17 08:05 05/30/17 08:05 05/30/17 08:05 05/30/17 08:05 05/30/17 08:05 General appearance: Present: cooperative, A&O X 3, morbidly obese, severe distress (Abdominal pain, nausea), answers questions appropriately - Head Head exam: Present: atraumatic, normocephalic - Eye Eye exam: Present: PERRL, conjuntiva pink, sclera anicteric Pupils: Present: PERRL - Neck Neck exam general surgery: Present: supple, trachea midline. Absent: lymphadenopathy - Respiratory Respiratory exam: Present: CTAB. Absent: accessory muscle use, rales, rhonchi, wheezes - Cardiovascular Cardiovascular exam: Present: RRR, +S1, +S2. Absent: diastolic murmur, gallop, rubs, systolic murmur - GI/Abdominal GI/Abdominal exam: Present: distended, normal bowel sounds, soft, no peritoneal signs. Absent: tenderness - Extremities Exam Extremities exam: Present: warm, radial pulses palpable and symmetrical. Absent : calf tenderness, cyanotic, pedal edema - Neurological Exam Neurological exam: Present: CN II-XII intact, oriented X3, no focal deficits. Absent: pronater drift, facial droop, speech deficit - Skin Skin exam: Present: dry, intact
== END 2017-05-30 14:05 | disposition home or self-care (01) ==
LOC: 3BNU 09:43 → EMEROO 09:43 → 3BNU 15:36 → SUATTDRO 19:06
PROVIDERS: ADMIT Internal Medicine; ATTEND Internal Medicine

== ENCOUNTER 2017-06-01 13:36 | Observation (INO) ==
[2017-06-01] MEDS ORDERED: *HR* Promethazine 25 MG/ML VIAL IVP PRN (14:15)
[2017-06-01 14:45] LABS: Eosinophils # 0.2 K/mcL (0.0-0.6); Hematocrit 37.8 % (35.3-44.9); Hemoglobin 12.2 g/dL (11.5-15.4); Mean Corpuscular HGB Conc 32.3 g/dL (31.6-35.5); Mean Corpuscular Hemoglobin 26.8 pg (28.0-33.3); Mean Corpuscular Volume 82.9 fL (83.0-100.0); Mean Platelet Volume 9.9 fL (9.4-12.4); Platelet Count 275 K/mcL (140-400); Red Blood Count 4.56 M/mcL (3.82-4.97); Red Cell Distribution Width 13.6 % (11.5-14.5)
[2017-06-01 14:49] LABS: Bilirubin,Urine Negative (Negative); Blood,Urine Negative (Negative); Color,Urine Yellow (Yellow); Glucose,Urine (UA) Normal (Normal); Ketones,Urine Negative (Negative); Leukocyte Esterase,Urine Small (Negative); Nitrite,Urine Negative (Negative); Protein,Urine Negative (Neg-Trace); Specific Gravity,Urine 1.017 (1.010-1.025); Urobilinogen,Urine Normal (Normal)
[2017-06-01 14:51] LABS: BUN/Creatinine Ratio 11 (6-26); Blood Urea Nitrogen 8 mg/dL (7-20); Calcium 8.8 mg/dL (8.6-10.8); Carbon Dioxide 24 mEq/L (19-29); Chloride 107 mEq/L (98-109); Glucose 94 mg/dL (70-99); Osmolality,Calculated 284 (280-300); Potassium 3.9 mEq/L (3.5-4.5); Sodium 138 mEq/L (136-145); eGFR For African Americans > 60 (> 60); eGFR For Non-African Americans > 60 (> 60)
[2017-06-01 14:51] LABS: Bacteria,Urine None Seen per hpf (None-Few); Hyaline Casts,Urine None Seen per lpf (None-Few); Squamous Epithelial Cell,Urine Many per lpf (None-Few)
--- NOTE | 2017-06-01 14:51 | Emergency Department Note ---
Disposition Clinical Impression: Nausea and vomiting Qualifiers: Vomiting type: bilious vomiting Qualified Code(s): R11.14 - Bilious vomiting Abdominal pain Qualifiers: Abdominal location: generalized Qualified Code(s): R10.84 - Generalized abdominal pain Sepsis Qualifiers: Sepsis type: sepsis due to unspecified organism Qualified Code(s): A41.9 - Sepsis, unspecified organism Disposition: Admitted As Inpatient Condition: Fair Time of Disposition: 16:07 Abdominal Pain HPI - General Chief Complaint: ED Abdominal Pain Stated Complaint: abdominal pain Time Seen by Provider: 06/01/17 13:50 Source: patient Nursing Notes Reviewed: Yes Vital Signs Reviewed: Yes - History of Present Illness HPI Narrative: Patient is a 22-year-old female presents secondary to acute onset of abdominal pain to include right upper quadrant epigastric. Patient also has pain in lower abdomen and her back that was found on previous admission for pyelonephritis which patient was started on Cipro and Flagyl. Patient states he was discharged 2 days ago but her pain never went away. Today's concern is for postprandial pain. Onset (ago): day(s) Consistency: constant Location: RUQ Pain Scale: 6 Quality: stabbing, sharp Radiation: other (Right subscapular) Worsens with: eating, vomiting, movement - Related Data LMP (females 10-50): 1 month Home Medications Medication Instructions Recorded Confirmed Albuterol Sulfate [Proair Hfa] 2 puff IH Q4H PRN 05/27/17 06/01/17 Metformin HCl [Metformin HCl ER] 500 mg PO QPM 05/27/17 06/01/17 Spironolactone [Aldactone] 100 mg PO DAILY 05/27/17 06/01/17 EPINEPHrine [Epipen] 0.3 mg IM ONCE PRN 06/01/17 06/01/17 Previous Rx's Medication Instructions Recorded Acetaminophen w/Cod 300-30 mg 1 tab PO Q6HR PRN #30 tab 05/30/17 [Tylenol w/Codeine #3] Ciprofloxacin [Cipro] 500 mg PO BID #32 tablet 05/30/17 Ibuprofen [Motrin] 600 mg PO TID PRN #30 tab 05/30/17 Ondansetron ODT [Zofran ODT] 4 mg SL Q4HR PRN #30 tab.rapdis 05/30/17 metroNIDAZOLE [Flagyl] 500 mg PO BID #12 tablet 05/30/17 Allergies Allergy/AdvReac Type Severity Reaction Status Date / Time Amoxicillin Allergy Rash Verified 06/01/17 13:44 divalproex sodium Allergy Irritable Verified 06/01/17 13:44 [From Depakote] Penicillins Allergy Rash Verified 06/01/17 13:44 aspirin AdvReac Hypertensio Verified 06/01/17 13:44 n All systems ED: reviewed and negative except as stated. Review of Systems: As Per HPI Constitutional: Reports: fever Gastrointestinal: Reports: abdominal pain, nausea, vomiting Musculoskeletal: Reports: back pain Endocrine: Reports: fatigue Abdominal Pain PMH - Past Medical History Medical history: Reports: no medical history Female Surgical History: Reports: other, Tonsillectomy, Adenoidectomy Psychiatric history: Reports: anxiety, depression - Social History Smoking status: Current every day smoker Alcohol use: Reports: none Drug use: Reports: none Physical Exam - General Limitations: no limitations General appearance: alert, anxious - Head Head exam: atraumatic, normocephalic, normal inspection - Eye Eye exam: Present: normal appearance, PERRL, EOMI - ENT ENT exam: normal exam, normal oropharynx, mucous membranes moist - Neck Neck exam: Present: normal inspection, full ROM, trachea midline - Chest Chest inspection: Present: normal inspection, symmetric chest wall rise - Respiratory Respiratory exam: Present: normal lung sounds bilaterally - Cardiovascular Cardiovascular exam: Present: tachycardia - Abdominal Exam Abdominal exam: Present: soft, tenderness, normal bowel sounds. Absent: guarding, rebound, rigidity Abdominal tenderness: Present: RUQ, RLQ, LUQ, LLQ, suprapubic - Extremities Exam Extremities exam: Present: normal inspection, full ROM. Absent: tenderness, pedal edema - Back Exam Back exam: Present: CVA tenderness (R), CVA tenderness (L) - Neurological Exam Neurological exam: Present: alert, oriented X3, CN II-XII intact - Skin Skin exam: Present: warm, dry, intact, normal color. Absent: rash, cyanosis, diaphoresis, erythema, pallor, mottled Course - Reevaluation(s) Reevaluation #1: Patient concerning for pain and right upper quadrant secondary to possible acute cholecystitis, pancreatitis, tubo-ovarian abscess, PID Ordered lipase, right upper quadrant ultrasound, CBC, BMP, lactic acid, test Time: 14:15 Reevaluation #2: Patient received 12.5 mg of Phenergan but still states she is feeling nauseous. We will repeat dose of Phenergan and 25 mg Time: 15:31 Reevaluation #3: Patient will be started on ceftriaxone 1 g IV for UTI that may be persisting from last pyelonephritis. - Consultations Consultation #1: Dr. Hernandez the hospitalist as except the patient for admission Time: 16:01 Vital Signs Temperature 98.2 F 06/01/17 13:41 Pulse Rate 115 06/01/17 13:41 Respiratory Rate 22 06/01/17 13:41 Blood Pressure 135/81 06/01/17 13:41 O2 Sat by Pulse Oximetry 94 06/01/17 13:41 Temperature 99.0 F 06/01/17 17:08 Pulse Rate 71 06/01/17 17:08 Respiratory Rate 16 06/01/17 17:08 Blood Pressure 116/76 06/01/17 17:08 O2 Sat by Pulse Oximetry 97 06/01/17 17:08 Oxygen Delivery Oxygen Delivery Room Air Abdominal Pain - MDM Narrative Medical decision making narrative: Patient concerning for pain and right upper quadrant secondary to possible acute cholecystitis, pancreatitis, tubo-ovarian abscess, PID. Checking labs and ultrasound right upper quadrant to check for acute cholecystitis, lipase for pancreatitis, lactate CBC and BMP for comparison. Patient's previous labs to trend against prior admission. Recent right upper quadrant ultrasound shows: IMPRESSION: Likely mild sludge within the gallbladder lumen, otherwise unremarkable ultrasound. 1501 hrs. patient: Current labs CBC and BMP show no abnormalities, 1548 hrs: Right upper quadrant ultrasound still shows biliary sludge Gallbladder Ultrasound 06/01/17 14:17 IMPRESSION: Minimal sludge in the gallbladder. No sonographic evidence of cholecystitis. D/ / Oumar Pablo MD / Oumar Pablo MD Interpreting Provider: Oumar Pablo MD Patient's urine shows that patient has not fully resolved her UTI and with new abdominal symptoms with no elevation of lipase or lactic acid and negative right upper quadrant ultrasound for cholecystitis my plan is to admit patient for sepsis following positive SIRS of tachypnea and tachycardia and UTI with change in abdominal pain. Patient was accepted for admission - Differential Diagnosis Differential Diagnosis: Likely: abdominal pain non-specific, AAA, abdominal pain mimics ectopic , acute appendicitis, constipation, colonic obstruction, hernia, ischemic bowel, , small bowel obstruction - Medical Records Medical records reviewed: Yes I reviewed the patient's medical records. Previous admission note states the patient started on Cipro Flagyl for pyelonephritis secondary to Gardnerella infection. Patient was categorizes sepsis. Patient also had a right upper quadrant ultrasound 4 days ago which showed biliary sludge. - Lab Data Lab results reviewed: Yes I reviewed the patient's lab results. Lab results narrative: Short CBC 06/01/17 Range/Units 14:31 WBC 8.8 D (4.3-11.1) K/mcL Hgb 12.2 (11.5-15.4) g/dL Hct 37.8 (35.3-44.9) % Plt Count 275 (140-400) K/mcL Neutrophils # 4.4 (1.6-8.9) K/mcL BMP 06/01/17 Range/Units 14:31 Sodium 138 (136-145) mEq/L Potassium 3.9 (3.5-4.5) mEq/L Chloride 107 (98-109) mEq/L Carbon Dioxide 24 (19-29) mEq/L BUN 8 (7-20) mg/dL Creatinine 0.74 (0.57-1.11) mg/dL Glucose 94 (70-99) mg/dL Calcium 8.8 (8.6-10.8) mg/dL Liver Function 06/01/17 Range/Units 14:31 Total Bilirubin < 0.3 (0.2-1.2) mg/dL Direct Bilirubin 0.1 (0.0-0.5) mg/dL AST 21 (5-34) Units/L ALT 19 (0-55) Units/L Alkaline Phosphatase 48 (38-126) Units/L Albumin 2.9 L (3.5-5.0) g/dL Urine 06/01/17 Range/Units 14:09 Urine Color Yellow (Yellow) Urine Clarity Clear (Clear) Urine pH 8.0 (5.0-8.0) pH Units Ur Specific [place] 1.017 (1.010-1.025) Urine Protein Negative (Neg-Trace) mg/dL Urine Glucose (UA) Normal (Normal) mg/dL Result diagrams: 06/01/17 14:31 06/01/17 14:31 Lab Results 06/01/17 06/01/17 06/01/17 Range/Units 14:09 14:09 14:31 WBC 8.8 D (4.3-11.1) K/mcL RBC 4.56 (3.82-4.97) M/mcL Hgb 12.2 (11.5-15.4) g/dL Hct 37.8 (35.3-44.9) % MCV 82.9 L (83.0-100.0) fL MCH 26.8 L (28.0-33.3) pg MCHC 32.3 (31.6-35.5) g/dL RDW 13.6 (11.5-14.5) % Plt Count 275 (140-400) K/mcL MPV 9.9 (9.4-12.4) fL Seg Neutrophils % 50.0 % Lymphocytes % 44.0 % Monocytes % 4.0 % Eosinophils % 2.0 % Neutrophils # 4.4 (1.6-8.9) K/mcL Lymphocytes # 3.9 (0.6-4.6) K/mcL Monocytes # 0.4 (0.0-1.3) K/mcL Eosinophils # 0.2 (0.0-0.6) K/mcL Reactive Lymphocytes Present A (Not Present) Platelet Estimate Normal (Normal) Anisocytosis 1+ A (Not Present) Sodium (136-145) mEq/L Potassium (3.5-4.5) mEq/L Chloride (98-109) mEq/L Carbon Dioxide (19-29) mEq/L BUN (7-20) mg/dL Creatinine (0.57-1.11) mg/dL Est GFR ( Amer) (> 60) Est GFR (Non-Af Amer) (> 60) BUN/Creatinine Ratio (6-26) Glucose (70-99) mg/dL Calculated Osmolality (280-300) Lactic Acid (0.5-2.2) mmol/L Calcium (8.6-10.8) mg/dL Total Bilirubin (0.2-1.2) mg/dL Direct Bilirubin (0.0-0.5) mg/dL Indirect Bilirubin (0.0-1.2) mg/dL AST (5-34) Units/L ALT (0-55) Units/L Alkaline Phosphatase (38-126) Units/L Serum Total Protein (6.0-8.3) g/dL Albumin (3.5-5.0) g/dL Globulin (2.4-3.5) g/dL Albumin/Globulin Ratio (1.1-2.2) Lipase (8-78) Units/L Urine Color Yellow (Yellow) Urine Clarity Clear (Clear) Urine pH 8.0 (5.0-8.0) pH Units Ur Specific [place] 1.017 (1.010-1.025) Urine Protein Negative (Neg-Trace) mg/dL Urine Glucose (UA) Normal (Normal) mg/dL Urine Ketones Negative (Negative) mg/dL Urine Blood Negative (Negative) Urine Nitrite Negative (Negative) Urine Bilirubin Negative (Negative) Urine Urobilinogen Normal (Normal) mg/dL Ur Leukocyte Esterase Small H (Negative) Urine Microscopic RBC 5-15 H (0-3) per hpf Urine Microscopic WBC 5-15 H (0-3) per hpf Ur Squamous Epith Cells Many H (None-Few) per lpf Urine Bacteria None Seen (None-Few) per hpf Hyaline Casts None Seen (None-Few) per lpf Ur Culture Indicated? YES A (NO) Urine Test Negative (Negative) 06/01/17 06/01/17 06/01/17 Range/Units 14:31 14:31 14:31 WBC (4.3-11.1) K/mcL RBC (3.82-4.97) M/mcL Hgb (11.5-15.4) g/dL Hct (35.3-44.9) % MCV (83.0-100.0) fL MCH (28.0-33.3) pg MCHC (31.6-35.5) g/dL RDW (11.5-14.5) % Plt Count (140-400) K/mcL MPV (9.4-12.4) fL Seg Neutrophils % % Lymphocytes % % Monocytes % % Eosinophils % % Neutrophils # (1.6-8.9) K/mcL Lymphocytes # (0.6-4.6) K/mcL Monocytes # (0.0-1.3) K/mcL Eosinophils # (0.0-0.6) K/mcL Reactive Lymphocytes (Not Present) Platelet Estimate (Normal) Anisocytosis (Not Present) Sodium 138 (136-145) mEq/L Potassium 3.9 (3.5-4.5) mEq/L Chloride 107 (98-109) mEq/L Carbon Dioxide 24 (19-29) mEq/L BUN 8 (7-20) mg/dL Creatinine 0.74 (0.57-1.11) mg/dL Est GFR ( Amer) > 60 (> 60) Est GFR (Non-Af Amer) > 60 (> 60) BUN/Creatinine Ratio 11 (6-26) Glucose 94 (70-99) mg/dL Calculated Osmolality 284 (280-300) Lactic Acid 1.4 (0.5-2.2) mmol/L Calcium 8.8 (8.6-10.8) mg/dL Total Bilirubin < 0.3 (0.2-1.2) mg/dL Direct Bilirubin 0.1 (0.0-0.5) mg/dL Indirect Bilirubin 0.2 (0.0-1.2) mg/dL AST 21 (5-34) Units/L ALT 19 (0-55) Units/L Alkaline Phosphatase 48 (38-126) Units/L Serum Total Protein 6.2 (6.0-8.3) g/dL Albumin 2.9 L (3.5-5.0) g/dL Globulin 3.3 (2.4-3.5) g/dL Albumin/Globulin Ratio 0.9 L (1.1-2.2) Lipase 37 (8-78) Units/L Urine Color (Yellow) Urine Clarity (Clear) Urine pH (5.0-8.0) pH Units Ur Specific [place] (1.010-1.025) Urine Protein (Neg-Trace) mg/dL Urine Glucose (UA) (Normal) mg/dL Urine Ketones (Negative) mg/dL Urine Blood (Negative) Urine Nitrite (Negative) Urine Bilirubin (Negative) Urine Urobilinogen (Normal) mg/dL Ur Leukocyte Esterase (Negative) Urine Microscopic RBC (0-3) per hpf Urine Microscopic WBC (0-3) per hpf Ur Squamous Epith Cells (None-Few) per lpf Urine Bacteria (None-Few) per hpf Hyaline Casts (None-Few) per lpf Ur Culture Indicated? (NO) Urine Test (Negative) - Radiology Data Radiology results reviewed: Yes I reviewed the patient's radiology results. Gallbladder Ultrasound 06/01/17 14:17 IMPRESSION: Minimal sludge in the gallbladder. No sonographic evidence of cholecystitis. D/ / Oumar Pablo MD / Oumar Pablo MD Interpreting Provider: Oumar Pablo MD - EKG Data EKG attestation: Yes I reviewed and interpreted this EKG. EKG results narrative: EKG taken 06/01/2017 at 1422 hrs. shows a sinus rhythm at a rate of [address] elevations or depressions in any leads, no QRS widening or QT prolongation, no wellens, [place], scar[place]
[2017-06-01 14:53] LABS: Clarity,Urine Clear (Clear)
[2017-06-01] MEDS ORDERED: 0.9 % Sodium Chloride 1,000 ML IVC ONE (14:53)
--- NOTE | 2017-06-01 14:58 | Emergency Department Note ---
Disposition Clinical Impression: Nausea and vomiting Qualifiers: Vomiting type: bilious vomiting Qualified Code(s): R11.14 - Bilious vomiting Abdominal pain Qualifiers: Abdominal location: generalized Qualified Code(s): R10.84 - Generalized abdominal pain Sepsis Qualifiers: Sepsis type: sepsis due to unspecified organism Qualified Code(s): A41.9 - Sepsis, unspecified organism Disposition: Admitted As Inpatient Condition: Good Abdominal Pain HPI - General Chief Complaint: ED Abdominal Pain Stated Complaint: abdominal pain Time Seen by Provider: 06/01/17 13:50 Source: patient - History of Present Illness Pain Scale: 6 - Related Data Home Medications Medication Instructions Recorded Confirmed Albuterol Sulfate [Proair Hfa] 2 puff IH Q4H PRN 05/27/17 06/01/17 Metformin HCl [Metformin HCl ER] 500 mg PO QPM 05/27/17 06/01/17 EPINEPHrine [Epipen] 0.3 mg IM ONCE PRN 06/01/17 06/01/17 Previous Rx's Medication Instructions Recorded Ondansetron ODT [Zofran ODT] 4 mg SL Q4HR PRN #30 tab.rapdis 05/30/17 Ciprofloxacin [Cipro] 500 mg PO BID 5 Days 06/03/17 HYDROcodone/Acet 5/325 mg [[place] 1 tab PO Q8H PRN #10 tab 06/03/17 5-325 mg] Nicotine Patch [Nicoderm] 14 mg TD DAILY #30 06/03/17 Omeprazole [PriLOSEC] 40 mg PO DAILY #30 cap 06/03/17 Allergies Allergy/AdvReac Type Severity Reaction Status Date / Time Amoxicillin Allergy Rash Verified 06/01/17 13:44 divalproex sodium Allergy Irritable Verified 06/01/17 13:44 [From Depakote] Penicillins Allergy Rash Verified 06/01/17 13:44 aspirin AdvReac Hypertensio Verified 06/01/17 13:44 n All systems ED: reviewed and negative except as stated. Constitutional: Reports: fever Gastrointestinal: Reports: abdominal pain, nausea, vomiting Musculoskeletal: Reports: back pain Endocrine: Reports: fatigue Abdominal Pain PMH - Past Medical History Medical history: Reports: no medical history Female Surgical History: Reports: other, Tonsillectomy, Adenoidectomy Psychiatric history: Reports: anxiety, depression - Social History Smoking status: Current every day smoker Alcohol use: Reports: none Drug use: Reports: none Physical Exam - General Limitations: no limitations General appearance: alert, anxious Course Vital Signs Temperature 98.2 F 06/01/17 13:41 Pulse Rate 115 06/01/17 13:41 Respiratory Rate 22 06/01/17 13:41 Blood Pressure 135/81 06/01/17 13:41 O2 Sat by Pulse Oximetry 94 06/01/17 13:41 Temperature 98.1 F 06/03/17 11:00 Pulse Rate 95 06/03/17 11:00 Respiratory Rate 16 06/03/17 11:00 Blood Pressure 105/69 06/03/17 11:00 O2 Sat by Pulse Oximetry 98 06/03/17 11:00 Oxygen Delivery Oxygen Delivery Room Air Abdominal Pain - Lab Data Result diagrams: 06/02/17 06:22 06/02/17 06:22 Lab Results 06/01/17 06/01/17 06/01/17 Range/Units 14:09 14:09 14:31 WBC 8.8 D (4.3-11.1) K/mcL RBC 4.56 (3.82-4.97) M/mcL Hgb 12.2 (11.5-15.4) g/dL Hct 37.8 (35.3-44.9) % MCV 82.9 L (83.0-100.0) fL MCH 26.8 L (28.0-33.3) pg MCHC 32.3 (31.6-35.5) g/dL RDW 13.6 (11.5-14.5) % Plt Count 275 (140-400) K/mcL MPV 9.9 (9.4-12.4) fL Seg Neutrophils % 50.0 % Lymphocytes % 44.0 % Monocytes % 4.0 % Eosinophils % 2.0 % Neutrophils # 4.4 (1.6-8.9) K/mcL Lymphocytes # 3.9 (0.6-4.6) K/mcL Monocytes # 0.4 (0.0-1.3) K/mcL Eosinophils # 0.2 (0.0-0.6) K/mcL Reactive Lymphocytes Present A (Not Present) Platelet Estimate Normal (Normal) Anisocytosis 1+ A (Not Present) Sodium (136-145) mEq/L Potassium (3.5-4.5) mEq/L Chloride (98-109) mEq/L Carbon Dioxide (19-29) mEq/L BUN (7-20) mg/dL Creatinine (0.57-1.11) mg/dL Est GFR ( Amer) (> 60) Est GFR (Non-Af Amer) (> 60) BUN/Creatinine Ratio (6-26) Glucose (70-99) mg/dL Calculated Osmolality (280-300) Lactic Acid (0.5-2.2) mmol/L Calcium (8.6-10.8) mg/dL Total Bilirubin (0.2-1.2) mg/dL Direct Bilirubin (0.0-0.5) mg/dL Indirect Bilirubin (0.0-1.2) mg/dL AST (5-34) Units/L ALT (0-55) Units/L Alkaline Phosphatase (38-126) Units/L Serum Total Protein (6.0-8.3) g/dL Albumin (3.5-5.0) g/dL Globulin (2.4-3.5) g/dL Albumin/Globulin Ratio (1.1-2.2) Lipase (8-78) Units/L Urine Color Yellow (Yellow) Urine Clarity Clear (Clear) Urine pH 8.0 (5.0-8.0) pH Units Ur Specific [place] 1.017 (1.010-1.025) Urine Protein Negative (Neg-Trace) mg/dL Urine Glucose (UA) Normal (Normal) mg/dL Urine Ketones Negative (Negative) mg/dL Urine Blood Negative (Negative) Urine Nitrite Negative (Negative) Urine Bilirubin Negative (Negative) Urine Urobilinogen Normal (Normal) mg/dL Ur Leukocyte Esterase Small H (Negative) Urine Microscopic RBC 5-15 H (0-3) per hpf Urine Microscopic WBC 5-15 H (0-3) per hpf Ur Squamous Epith Cells Many H (None-Few) per lpf Urine Bacteria None Seen (None-Few) per hpf Hyaline Casts None Seen (None-Few) per lpf Ur Culture Indicated? YES A (NO) Urine Test Negative (Negative) 06/01/17 06/01/17 06/01/17 Range/Units 14:31 14:31 14:31 WBC (4.3-11.1) K/mcL RBC (3.82-4.97) M/mcL Hgb (11.5-15.4) g/dL Hct (35.3-44.9) % MCV (83.0-100.0) fL MCH (28.0-33.3) pg MCHC (31.6-35.5) g/dL RDW (11.5-14.5) % Plt Count (140-400) K/mcL MPV (9.4-12.4) fL Seg Neutrophils % % Lymphocytes % % Monocytes % % Eosinophils % % Neutrophils # (1.6-8.9) K/mcL Lymphocytes # (0.6-4.6) K/mcL Monocytes # (0.0-1.3) K/mcL Eosinophils # (0.0-0.6) K/mcL Reactive Lymphocytes (Not Present) Platelet Estimate (Normal) Anisocytosis (Not Present) Sodium 138 (136-145) mEq/L Potassium 3.9 (3.5-4.5) mEq/L Chloride 107 (98-109) mEq/L Carbon Dioxide 24 (19-29) mEq/L BUN 8 (7-20) mg/dL Creatinine 0.74 (0.57-1.11) mg/dL Est GFR ( Amer) > 60 (> 60) Est GFR (Non-Af Amer) > 60 (> 60) BUN/Creatinine Ratio 11 (6-26) Glucose 94 (70-99) mg/dL Calculated Osmolality 284 (280-300) Lactic Acid 1.4 (0.5-2.2) mmol/L Calcium 8.8 (8.6-10.8) mg/dL Total Bilirubin < 0.3 (0.2-1.2) mg/dL Direct Bilirubin 0.1 (0.0-0.5) mg/dL Indirect Bilirubin 0.2 (0.0-1.2) mg/dL AST 21 (5-34) Units/L ALT 19 (0-55) Units/L Alkaline Phosphatase 48 (38-126) Units/L Serum Total Protein 6.2 (6.0-8.3) g/dL Albumin 2.9 L (3.5-5.0) g/dL Globulin 3.3 (2.4-3.5) g/dL Albumin/Globulin Ratio 0.9 L (1.1-2.2) Lipase 37 (8-78) Units/L Urine Color (Yellow) Urine Clarity (Clear) Urine pH (5.0-8.0) pH Units Ur Specific [place] (1.010-1.025) Urine Protein (Neg-Trace) mg/dL Urine Glucose (UA) (Normal) mg/dL Urine Ketones (Negative) mg/dL Urine Blood (Negative) Urine Nitrite (Negative) Urine Bilirubin (Negative) Urine Urobilinogen (Normal) mg/dL Ur Leukocyte Esterase (Negative) Urine Microscopic RBC (0-3) per hpf Urine Microscopic WBC (0-3) per hpf Ur Squamous Epith Cells (None-Few) per lpf Urine Bacteria (None-Few) per hpf Hyaline Casts (None-Few) per lpf Ur Culture Indicated? (NO) Urine Test (Negative) Attestation Statement - Attestation Attestation: I examined this patient and my medical decision-making was reviewed with the Resident Physician. I agree with the documented findings, disposition and treatment plan as described except to the extent set forth below. In summary 22 -year-old female recently admitted for pyelonephritis. We will obtain basic labs, repeat right upper quadrant ultrasound to rule out acute cholecystitis. Her pain is postprandial. Additionally will treat pain and nausea. Disposition pending results of imaging and laboratory analyses.
[2017-06-01] MEDS ORDERED: Ketorolac 15 MG/ML VIAL IVP ONE (15:02)
[2017-06-01 15:25] LABS: Anisocytosis 1+ (Not Present); Lymphocytes # 3.9 K/mcL (0.6-4.6); Monocytes # 0.4 K/mcL (0.0-1.3); Neutrophils # 4.4 K/mcL (1.6-8.9); Platelet Estimate Normal (Normal); Reactive Lymphocytes Present (Not Present)
[2017-06-01] MEDS ORDERED: *HR* Promethazine 25 MG/ML VIAL IVP ONE (15:31)
[2017-06-01 16:24] LABS: Alanine Aminotransferase 19 Units/L (0-55); Albumin 2.9 g/dL (3.5-5.0); Albumin/Globulin Ratio 0.9 (1.1-2.2); Alkaline Phosphatase 48 Units/L (38-126); Aspartate Amino Transferase 21 Units/L (5-34); Bilirubin,Direct 0.1 mg/dL (0.0-0.5); Bilirubin,Indirect 0.2 mg/dL (0.0-1.2); Bilirubin,Total < 0.3 mg/dL (0.2-1.2); Globulin 3.3 g/dL (2.4-3.5); Total Protein 6.2 g/dL (6.0-8.3)
[2017-06-01] MEDS ORDERED: Naloxone 0.4 MG/ML INJ IVP PRN (18:31)
[2017-06-01] MEDS ORDERED: Dextrose Gel 15 GM PO PRN ×2 (18:31)
[2017-06-01] MEDS ORDERED: *HR* Dextrose 50 % in Water (Syg) 50 ML SYRINGE IVP PRN (18:31)
[2017-06-01] MEDS ORDERED: D5% in Water 1,000 ML IVC PRN (18:31)
[2017-06-01] MEDS ORDERED: Ondansetron 4 MG/2 ML VIAL IVP PRN (18:31)
[2017-06-01] MEDS ORDERED: *HR* Acetaminophen w/Cod 300-30 mg 1 TAB TABLET PO PRN (18:43)
--- NOTE | 2017-06-01 18:54 | Internal Med History&Physical ---
Date of Encounter: 06/01/17 Time of Encounter: 18:50 Assessment and Plan (1) Abdominal pain Current visit: Yes Status: Acute She presents with right lower quadrant and left lower quadrant abdominal pain that is post admission last week for pyelonephritis. For that admission she was discharged on Cipro and Flagyl to which she is still taking. Currently she is experiencing nausea, vomiting, fever, fatigue, night sweats, dizziness and cold chills. UTS gallbladder reveals no evidence of acute cholecystitis. Stat CT of abdomen and pelvis with IV contrast only. I am holding oral contrast at this time because the patient continues to vomit and remains nauseous Nothing by mouth, every 6 hours Accu-Cheks, stop oral glycemic agents and start low-dose sliding scale insulin coverage Morphine 2 mg every 4 hours when necessary for pain Zofran IV push every 8 hours for nausea and vomiting Continue ciprofloxacin 400 mg IV every 12 hours Continue Flagyl 500 mg IV every 8 hoursIV 0.9 normal saline 125 mL per hour Every 4 hours vitals Continuous telemetry Continuous pulse ox and when necessary oxygen therapy titrated to maintain SPO2 greater than 92% (2) Nausea & vomiting Current visit: Yes Status: Acute Patient has intractable nausea and vomiting which began this afternoon after eating a fast food meal. The emesis appears to be bilious upon description. He initially presented to the emergency department with right upper quadrant abdominal pain. However, at this time the right upper quadrant abdominal pain has subsided and she presents with right lower quadrant and left lower quadrant abdominal pain with radiation to left lower back. UTS gallbladder reveals no evidence of acute cholecystitis. Stat CT of abdomen and pelvis with IV contrast only. I am holding oral contrast at this time because the patient continues to vomit and remains nauseous Nothing by mouth, every 6 hours Accu-Cheks, stop oral glycemic agents and start low-dose sliding scale insulin coverage Morphine 2 mg every 4 hours when necessary for pain Zofran IV push every 8 hours for nausea and vomiting Continue ciprofloxacin 400 mg IV every 12 hours Continue Flagyl 500 mg IV every 8 hours IV 0.9 normal saline 125 mL per hour Every 4 hours vitals Continuous telemetry Continuous pulse ox and when necessary oxygen therapy titrated to maintain SPO2 greater than 92% Qualifiers: Vomiting Intractability: non-intractable Qualified Code(s): R11.2 - Nausea with vomiting, unspecified (3) Pyelonephritis Current visit: Yes Status: Acute Patient was recently admitted for pyelonephritis and discharged on ciprofloxacin and Flagyl. She was instructed to continue complete course of Cipro and Flagyl. Discontinue home cipro and flagyl and initiate Cipro 400mgIV q12 hours and Flagyl 500mg IV Q8hr. de-escalate antibiotic therapy is appropriate (4) Smoker Current visit: Yes Status: Acute Patient is a half pack per day smoker for the last 6 years. She does not wish to quit at this time. We will start nicotine patch 14 g daily. (5) DVT prophylaxis Current visit: Yes Status: Acute Due to prolonged immobility and hospital stay patient is a high risk for DVT. Start Lovenox 40 mg subcutaneous daily Internal Medicine - H&P: HPI Chief complaint: Abdominal pain RLQ, LLQ, with radiation to left lower back Admitted From: Home Plans for Post Hospital Care: Home History of present illness: Ms. Pavon is a 22 year old female with a past medical history of anxiety, depression, irritable bowel syndrome, & pyelonephritis to which she was recently admitted and treated with ciprofloxacin and metronidazole at [facility]. Presents to [facility] today with RLQ, LLQ pain with radiation to her left lower back, as well as nausea and vomiting. All information obtained from chart review and patient report. She reports that she was eating this afternoon and 5 minutes after eating she developed nausea and began to vomit brown rust colored, and thick emisis. Immediately upon vomiting she began experiencing right lower quadrant and left lower quadrant abdominal pain. The patient is having ongoing since arrival to the emergency department and is progressively getting worse. The pain as 8/10, sharp and radiating. Additionally, she notes that activity and eating makes it worse, but also denies any alleviation of pain. She has tried taking Tylenol 3, and ibuprofen but says that it does not help. She did receive 2 mg of morphine in the emergency department without successful pain relief. Additionally, she received Phenergan in the emergency department which has helped to alleviate some of her nausea. Ultrasound of the gallbladder was negative for any evidence of cholecystitis. LFTs are unremarkable, CBC was unremarkable, and metabolic panel was unremarkable, lactic acid is 1.4. Additionally, she is concerned for constipation and is reporting she has not had a bowel movement for 5 days. She does report she is continuing to pass gas. Also, UA revealed small amount of leukocytes. She was given Rocephin in the ED. She admits to fever with a MAXIMUM TEMPERATURE of 101, fatigue, night sweats, nausea, vomiting , constipation, cold chills, dizziness. She denies any hematemesis, hematochezia, epigastric pain, or CVA pain/tenderness. She is being admitted to [facility] for further workup and evaluation Past Med Surg Social Fam HX - Past Medical History Medical history: no medical history Psychiatric history: anxiety, depression - Past Surgical History Surgical History: other - Social History Smoking Status: Current every day smoker Packs per day: Half a pack per day Smokeless Tobacco Status: No Alcohol use: rarely Drug use: none - Family History Father Family Member Ethnicity: Non- Living Status: Hx Family Cardiac Disorders: Yes (HTN, HLD, NM, Stroke, HF, Aplastic anemia) Hx Family Respiratory Disorders: Yes (COPD) Hx Family Endocrine Disorder: Yes (DM) Mother Family Member Ethnicity: Non- Living Status: Still Living Hx Family Cardiac Disorders: Yes (Stroke, HD) Hx Family Respiratory Disorders: Yes (COPD) Brother Family Member Ethnicity: Non- Living Status: Still Living Internal Medicine - H&P: Meds Albuterol Sulfate [Proair Hfa] 2 puff IH Q4H PRN 05/27/17 [History] Metformin HCl [Metformin HCl ER] 500 mg PO QPM 05/27/17 [History] Spironolactone [Aldactone] 100 mg PO DAILY 05/27/17 [History] Acetaminophen w/Cod 300-30 mg [Tylenol w/Codeine #3] 1 tab PO Q6HR PRN #30 tab 05/30/17 [Rx] Ciprofloxacin [Cipro] 500 mg PO BID #32 tablet 05/30/17 [Rx] Ibuprofen [Motrin] 600 mg PO TID PRN #30 tab 05/30/17 [Rx] Ondansetron ODT [Zofran ODT] 4 mg SL Q4HR PRN #30 tab.rapdis 05/30/17 [Rx] metroNIDAZOLE [Flagyl] 500 mg PO BID #12 tablet 05/30/17 [Rx] EPINEPHrine [Epipen] 0.3 mg IM ONCE PRN 06/01/17 [History] 3 Allergy/AdvReac Type Severity Reaction Status Date / Time Amoxicillin Allergy Rash Verified 06/01/17 13:44 divalproex sodium Allergy Irritable Verified 06/01/17 13:44 [[facility]] Penicillins Allergy Rash Verified 06/01/17 13:44 aspirin AdvReac Hypertensio Verified 06/01/17 13:44 n All Systems PM: A 10-system review of systems was performed and is negative for pertinent findings except as documented above in the HPI. - Constitutional Constitutional: chills (Began this afternoon), fever(s) (She began yesterday with a maximum temperature of 101), night sweats - EENT Eyes: no change in vision, no discharge, no pain, no photophobia Ears: no ear discharge, no ear pain, no tinnitus Nose, mouth and throat: no dysphagia, no nasal discharge, no neck pain, no sore throat - Cardiovascular Cardiovascular ROS IM: chest pain (Began this afternoon shortly after eating.), no diaphoresis, no dyspnea, no edema, no lightheadedness, no palpitations, no syncope - Respiratory Respiratory: no cough, no dyspnea, no wheezing, no excessive phlegm production - Gastrointestinal Gastrointestinal: as per HPI, abdominal pain, constipation, nausea, vomiting, no belching, no bloating, no diarrhea, no early satiety, no hematemesis, no hematochezia, no melena - Genitourinary Genitourinary: no change in urinary stream, no dysuria, no flank pain, no hematuria - Musculoskeletal Musculoskeletal ROS IM: no numbness, no tingling - Integumentary Integumentary IM: no rash, no unusual bruising - Neurological Neurological ROS: no confusion, no convulsions, no focal weakness, no numbness, no tingling, no tremor(s) - Hematologic/Lymphatic Hematologic/Lymphatic: no easy bruising - Constitutional Vitals: Temp Pulse Resp BP Pulse Ox 99.0 F 71 16 116/76 97 06/01/17 17:08 06/01/17 17:08 06/01/17 17:08 06/01/17 17:08 06/01/17 17:08 General appearance: Present: cooperative, mild distress, A&O X 3, obese, answers questions appropriately - Head Head exam: Present: atraumatic, normocephalic - Eye Eye exam: Present: EOMI, PERRL, conjuntiva pink, sclera anicteric Pupils: Present: PERRL - Neck Neck exam general surgery: Present: supple, trachea midline. Absent: lymphadenopathy - Respiratory Respiratory exam: Present: CTAB. Absent: accessory muscle use, rales, rhonchi, wheezes - Cardiovascular Cardiovascular exam: Present: RRR, +S1, +S2. Absent: diastolic murmur, gallop, rubs, systolic murmur - GI/Abdominal GI/Abdominal exam: Present: hypoactive bowel sounds, normal bowel sounds, soft, tenderness. Absent: distended, firm, guarding, mass, rebound, rigid Additional comments: Tenderness noted RLQ and O2 upon palpation. Patient is without rebound tenderness. She notes that palpation the left lower quadrant causes pain to left shoulder. - Extremities Exam Extremities exam: Present: warm, radial pulses palpable and symmetrical. Absent : calf tenderness, cyanotic, pedal edema - Neurological Exam Neurological exam: Present: CN II-XII intact, oriented X3, no focal deficits. Absent: pronater drift, facial droop, speech deficit - Skin Skin exam: Present: dry, intact Internal Med - H&P Results - Labs CBC & Chem 7: 06/01/17 14:31 06/01/17 14:31 - Diagnostic Studies US - abdomen Additional comments: Ultrasound of gallbladder shows no evidence of cholecystitis
[2017-06-01] MEDS: 0.9 % Sodium Chloride 1,000 ML IVC SCH (19:04)
[2017-06-01] MEDS: *HR* Morphine 2 MG/ML SYRINGE IVP PRN (19:46)
[2017-06-01] MEDS ORDERED: Insulin LISPRO 300 UNITS/3 ML VIAL SQ SCH (21:00)
[2017-06-01] MEDS ORDERED: Nicotine 14 MG PATCH.TD24 TD ONE (21:27)
[2017-06-02] MEDS: MetroNIDAZOLE 500 MG/100 ML 500 MG/100 ML BAG IVPB SCH ×2 (00:15→07:41)
[2017-06-02] MEDS: *HR* Morphine 2 MG/ML SYRINGE IVP PRN ×5 (00:15→21:40)
[2017-06-02] MEDS: 0.9 % Sodium Chloride 1,000 ML IVC SCH (04:58)
[2017-06-02] MEDS: *HR* Enoxaparin 40 MG/0.4 ML SYRINGE SQ SCH (05:01)
[2017-06-02] MEDS: Insulin LISPRO 300 UNITS/3 ML VIAL SQ SCH ×3 (06:16→18:08)
[2017-06-02 06:57] LABS: Basophils % 0.5 %; Eosinophils # 0.2 K/mcL (0.0-0.6); Eosinophils % 2.4 %; Hematocrit 36.5 % (35.3-44.9); Hemoglobin 11.6 g/dL (11.5-15.4); Immature Granulocytes % 0.6 % (0-4); Immature Platelets 2.3 % (1.1-6.1); Lymphocytes # 3.8 K/mcL (0.6-4.6); Lymphocytes % 45.5 %; Mean Corpuscular HGB Conc 31.8 g/dL (31.6-35.5); Mean Corpuscular Hemoglobin 26.9 pg (28.0-33.3); Mean Corpuscular Volume 84.5 fL (83.0-100.0); Mean Platelet Volume 9.9 fL (9.4-12.4); Monocytes # 0.4 K/mcL (0.0-1.3); Neutrophils # 3.9 K/mcL (1.6-8.9); Platelet Count 262 K/mcL (140-400); Red Blood Count 4.32 M/mcL (3.82-4.97); Red Cell Distribution Width 13.6 % (11.5-14.5)
[2017-06-02 07:14] LABS: BUN/Creatinine Ratio 10 (6-26); Blood Urea Nitrogen 7 mg/dL (7-20); Calcium 8.3 mg/dL (8.6-10.8); Carbon Dioxide 22 mEq/L (19-29); Chloride 108 mEq/L (98-109); Glucose 75 mg/dL (70-99); Osmolality,Calculated 279 (280-300); Potassium 4.2 mEq/L (3.5-4.5); Sodium 136 mEq/L (136-145); eGFR For African Americans > 60 (> 60); eGFR For Non-African Americans > 60 (> 60)
[2017-06-02] MEDS ORDERED: Insulin LISPRO 300 UNITS/3 ML VIAL SQ SCH (07:30)
[2017-06-02] MEDS: Nicotine 14 MG PATCH.TD24 TD SCH (07:41)
[2017-06-02 08:43] LABS: Platelet Estimate Normal (Normal)
--- NOTE | 2017-06-02 11:41 | General Surgery Consult Note ---
Date of Encounter: 06/02/17 Time of Encounter: 11:39 History of Present Illness Consult date: 06/02/17 Reason for consult: abdominal pain Requesting physician: Charmaine Read History of present illness: 22-year-old female referred for surgical services for further evaluation of right upper quadrant abdominal pain, nausea and vomiting. Patient provides a history of "being sick" for the past 2 weeks. The patient describes severe left -sided abdominal pain with fever to 104, nausea and vomiting. The patient presented to [facility] ED 05/27/17. On presentation the patient complained of severe abdominal pain, she was febrile to 102.9, heart rate was 112, and CT of the abdomen/pelvis demonstrated no acute abnormalities. Fluid in the endometrial canal and a small amount of free pelvic fluid was described as deemed to be physiologic. Based on the patient's symptoms of severe abdominal pain radiating to the flank and groin, the fever, and accompanying leukocytosis, 13.3, the patient was admitted for sepsis due to suspected UTI/pyelonephritis. The patient symptoms resolved, she was discharged home on 05/30/17. She returned to [facility] ED, 06/01/17, for further evaluation of sudden onset right-sided abdominal pain, nausea and vomiting. Patient describes eating a "double burger " with abrupt onset upper abdominal pain, nausea vomiting, "within seconds' pf ingesting this meal. The patient was readmitted. Labs were unremarkable with normal white count of 8.8, hemoglobin 12.2, hematocrit 37.8. Differential was unremarkable. Electrolytes, BUN, creatinine were all within normal limits. Lactic acid was 1.4, LFTs were within normal limits. CT was repeated, demonstrating no substantial changes from the prior CT. And ultrasound of gallbladder was also obtained. Findings included: Liver with normal echogenicity without intrahepatic biliary duct dilatation, minimal sludge seen within the gallbladder, no stones, no wall thickening or pericholecystic fluid. The sonographic Moise sign was described as negative. The presence of minimal sludge apparently has prompted a surgical consultation to consider a hepatobiliary source of the patient's upper abdominal pain, nausea and vomiting. Past medical history: Pseudotumor cerebri; H. pylori diagnosed in 2015; anxiety and depression Allergies: Shrimp, which causes severe nausea vomiting; and as a result allergy to iodinated contrast The patient also describes allergies to amoxicillin/penicillin with exposure resulting in a rash; divalproex which causes the patient become irritable; Aspirin which causes elevated blood pressure Medications: The patient She is on no routine medications at home Social history: Patient indicates she has been 5 times,P0; the patient admits to tobacco use for the past 6 years, currently describes 1/2 PPD but admits to "heavy consumption" approximately 2 packs per day until her diagnosis of H. pylori in 2014 (approx 4 years). The patient denies any alcohol or illicit drug use. Family history: Father with history of hypertension, hyperlipidemia, MS , stroke, COPD, diabetes, and aplastic anemia Mother is alive with history of stroke, COPD. Physical exam: Morbidly obese, age-appropriate female resting comfortably in her hospital bed. The patient has been afebrile since her admission, 06/01/2017; pulse 86, respirations 16, blood pressure 112/77. SPO2 on room air 98%. Skin is warm, without obvious jaundice; multiple cutaneous tattoos are present Cardiac: Regular rate, no appreciable murmurs Lungs: Clear to auscultation bilaterally; no obvious abdominal pain to deep inspiration Abdomen: Morbidly obese with exquisite tenderness in the epigastrium - the tenderness is apparent on contact with the skin. There were no obvious intra-abdominal masses. No rebound or CVA tenderness. Bowel sounds were normally active. The patient also had left groin tenderness (over bony prominences); no inguinal or femoral hernias detected bilaterally. No inguinal adenopathy was detected Extremities: No obvious clubbing cyanosis or edema. CT abdomen and pelvis, 05/27/17 and 06/01/17, were personally reviewed with [facility]. Ultrasound gallbladder, 06/01/17, was also personally reviewed with [facility] were reviewed Impression: 22-year-old female with epigastric abdominal pain, nausea vomiting with no identified etiology for these symptoms. The patient apparently presented with left upper quadrant abdominal pain radiating to the back and groin, 05/27/2017, with presumptive diagnosis of pyelonephritis. The patient was discharged 05/30/2017, with return to hospital with upper abd pain, N/V 06/01/2017. CTs, USGB, labs have been non diagnostic. Patient has history H pylori gastritis - it is noted the patient is not on PPI. Plan: discussed with Dr Read. 1)discontinue ATB 2)initiate PPI 3) Hb scan/CCK; 4/ continue NPO for now. patient aware of the Hb scan with CCk to be completed today. Past Med Surg Social Fam HX - Past Medical History Medical history: no medical history Psychiatric history: anxiety, depression - Past Surgical History Surgical History: other - Social History Smoking Status: Current every day smoker Packs per day: Half a pack per day Smokeless Tobacco Status: No Alcohol use: rarely Drug use: none - Family History Father Family Member Ethnicity: Non- Living Status: Hx Family Cardiac Disorders: Yes (HTN, HLD, MS, Stroke, HF, Aplastic anemia) Hx Family Respiratory Disorders: Yes (COPD) Hx Family Endocrine Disorder: Yes (DM) Mother Family Member Ethnicity: Non- Living Status: Still Living Hx Family Cardiac Disorders: Yes (Stroke, HD) Hx Family Respiratory Disorders: Yes (COPD) Brother Family Member Ethnicity: Non- Living Status: Still Living Medications and Allergies Albuterol Sulfate [Proair Hfa] 2 puff IH Q4H PRN 05/27/17 [History] Metformin HCl [Metformin HCl ER] 500 mg PO QPM 05/27/17 [History] Spironolactone [Aldactone] 100 mg PO DAILY 05/27/17 [History] Acetaminophen w/Cod 300-30 mg [Tylenol w/Codeine #3] 1 tab PO Q6HR PRN #30 tab 05/30/17 [Rx] Ciprofloxacin [Cipro] 500 mg PO BID #32 tablet 05/30/17 [Rx] Ibuprofen [Motrin] 600 mg PO TID PRN #30 tab 05/30/17 [Rx] Ondansetron ODT [Zofran ODT] 4 mg SL Q4HR PRN #30 tab.rapdis 05/30/17 [Rx] metroNIDAZOLE [Flagyl] 500 mg PO BID #12 tablet 05/30/17 [Rx] EPINEPHrine [Epipen] 0.3 mg IM ONCE PRN 06/01/17 [History] 3 Allergy/AdvReac Type Severity Reaction Status Date / Time Amoxicillin Allergy Rash Verified 06/01/17 13:44 divalproex sodium Allergy Irritable Verified 06/01/17 13:44 [From Depakote] Penicillins Allergy Rash Verified 06/01/17 13:44 aspirin AdvReac Hypertensio Verified 06/01/17 13:44 n Review of Systems All systems PM: A 10-system review of systems was performed and is negative for pertinent findings except as documented above in the HPI. General Surgery Exam Initial Vital Signs Temp Pulse Resp BP Pulse Ox 98.2 F 115 22 135/81 94 06/01/17 13:41 06/01/17 13:41 06/01/17 13:41 06/01/17 13:41 06/01/17 13:41 Exam Initial Vital Signs Temp Pulse Resp BP Pulse Ox 98.2 F 115 22 135/81 94 06/01/17 13:41 06/01/17 13:41 06/01/17 13:41 06/01/17 13:41 06/01/17 13:41 Results - Labs 06/02/17 06:22 06/02/17 06:22 Abnormal lab results MCH 26.9 pg (28.0-33.3) L 06/02/17 06:22 Reactive Lymphocytes Present (Not Present) A 06/01/17 14:31 Anisocytosis 1+ (Not Present) A 06/01/17 14:31 POC Glucose 91 (58-89) H 06/02/17 11:15 Calculated Osmolality 279 (280-300) L 06/02/17 06:22 Calcium 8.3 mg/dL (8.6-10.8) L 06/02/17 06:22 Albumin 2.9 g/dL (3.5-5.0) L 06/01/17 14:31 Albumin/Globulin Ratio 0.9 (1.1-2.2) L 06/01/17 14:31 Ur Leukocyte Esterase Small (Negative) H 06/01/17 14:09 Urine Microscopic RBC 5-15 per hpf (0-3) H 06/01/17 14:09 Urine Microscopic WBC 5-15 per hpf (0-3) H 06/01/17 14:09 Ur Squamous Epith Cells Many per lpf (None-Few) H 06/01/17 14:09 Ur Culture Indicated? YES (NO) A 06/01/17 14:09 Diabetes panel 06/02/17 Range/Units 06:22 Sodium 136 (136-145) mEq/L Potassium 4.2 (3.5-4.5) mEq/L Chloride 108 (98-109) mEq/L Carbon Dioxide 22 (19-29) mEq/L BUN 7 (7-20) mg/dL Creatinine 0.67 (0.57-1.11) mg/dL Glucose 75 (70-99) mg/dL Calcium 8.3 L (8.6-10.8) mg/dL Calcium panel 06/02/17 Range/Units 06:22 Calcium 8.3 L (8.6-10.8) mg/dL Pituitary panel 06/02/17 Range/Units 06:22 Sodium 136 (136-145) mEq/L Potassium 4.2 (3.5-4.5) mEq/L Chloride 108 (98-109) mEq/L Carbon Dioxide 22 (19-29) mEq/L BUN 7 (7-20) mg/dL Creatinine 0.67 (0.57-1.11) mg/dL Glucose 75 (70-99) mg/dL Calcium 8.3 L (8.6-10.8) mg/dL Adrenal panel 06/02/17 Range/Units 06:22 Sodium 136 (136-145) mEq/L Potassium 4.2 (3.5-4.5) mEq/L Chloride 108 (98-109) mEq/L Carbon Dioxide 22 (19-29) mEq/L BUN 7 (7-20) mg/dL Creatinine 0.67 (0.57-1.11) mg/dL Glucose 75 (70-99) mg/dL Calcium 8.3 L (8.6-10.8) mg/dL All other labs normal. Consult Discharge Plan - Plan Referrals: NONE,PCP [Primary Care Provider] -
--- NOTE | 2017-06-02 13:57 | Internal Med Progress Note ---
Date of Encounter: 06/02/17 Time of Encounter: 13:54 - Assessment and plan (1) Abdominal pain Current Visit: Yes Status: Acute Assessment and plan: Her pain symptoms are so vague however since she developed RUQ abd pain with bilious vomitings after she had Emily Double burger, and U/S of GB showed mild sludge concerned for GB pathology..she may get benefit with HIDA scan Consulted surgery for further evaluation Normal LFT's noticed Cont NPO for now Cont supportive / symptomatic care cont IVF no signs of cholecystitis Qualifiers: Abdominal location: generalized Qualified Code(s): R10.84 - Generalized abdominal pain (2) Nausea & vomiting Current Visit: Yes Status: Acute Assessment and plan: cont current care Qualifiers: Vomiting Intractability: non-intractable Qualified Code(s): R11.2 - Nausea with vomiting, unspecified (3) Pyelonephritis Current Visit: Yes Status: Acute Assessment and plan: Reviewed her recent Urine cx results 05/27/17 - showing Proteus Reviewed CT of Abd - no more active pyelonephritis Cont abx Cipro t finish full course # 5/7 (4) DVT prophylaxis Current Visit: Yes Status: Acute Assessment and plan: Low risk early ambulation recommended - Subjective Interval history: Ms. Pavon is a 22 year old female with a past medical history of anxiety, depression, irritable bowel syndrome, & pyelonephritis to which she was recently admitted and treated with ciprofloxacin and metronidazole at [facility]. Presents to [facility] today with RUQ, LLQ pain with radiation to her left lower back, as well as nausea and vomiting. Pt still c/o RUQ and epigastric discomfort, and still has bilious vomiting. She still requesting for more frequent pain medication. Denied any CP. - Constitutional Vitals: Temp Pulse Resp BP Pulse Ox 98.2 F 86 16 112/77 98 06/02/17 11:12 06/02/17 11:12 06/02/17 11:12 06/02/17 11:12 06/02/17 11:12 General appearance: Present: cooperative, mild distress, A&O X 3, obese, answers questions appropriately - Head Head exam: Present: atraumatic, normal inspection - Respiratory Respiratory exam: Present: CTAB. Absent: respiratory distress, rhonchi, wheezes - Cardiovascular Cardiovascular exam: Present: RRR, +S1, +S2. Absent: diastolic murmur, gallop, rubs, systolic murmur - GI/Abdominal GI/Abdominal exam: Present: tenderness (RUQ tenderness. Epigastric discomfort.) - Extremities Exam Extremities exam: Absent: calf tenderness, pedal edema, tenderness - Psychiatric Psychiatric exam: Present: normal affect, normal mood Internal Medicine: Result - Labs CBC & Chem 7: 06/02/17 06:22 06/02/17 06:22 Labs: Short CBC 06/02/17 Range/Units 06:22 WBC 8.4 (4.3-11.1) K/mcL Hgb 11.6 (11.5-15.4) g/dL Hct 36.5 (35.3-44.9) % Plt Count 262 (140-400) K/mcL Neutrophils # 3.9 (1.6-8.9) K/mcL BMP 06/02/17 06:22 Sodium 136 Potassium 4.2 Chloride 108 Carbon Dioxide 22 BUN 7 Creatinine 0.67 Glucose 75 Calcium 8.3 L Consult Discharge Plan - Plan Referrals: NONE,PCP [Primary Care Provider] -
--- NOTE | 2017-06-02 14:59 | Electrocardiograph Report ---
[place] [id number] Test Date: 2017-06-01 Pat Name: Pema Pavon Department: 102 Room: 3A37 Gender: F Artist Agent: Elizabeth : [id number] Requested By: Dawood Donahue Order Number: [id number] Reading MD: Mhenaz Casas Measurements Intervals [place]ba Rate: 88 P: 25 MI: 120 QRS: 32 QRSD: 81 T: 18 QT: 348 QTc: 394 Interpretive Statements SINUS RHYTHM Electronically Signed On 06-02-2017 14:58:06 EDT by Mehnaz Casas
[2017-06-02] MEDS ORDERED: 0.9 % Sodium Chloride 1,000 ML IVC SCH (16:40)
[2017-06-03] MEDS: Insulin LISPRO 300 UNITS/3 ML VIAL SQ SCH ×3 (03:38→13:04)
[2017-06-03] MEDS: *HR* Morphine 2 MG/ML SYRINGE IVP PRN ×3 (03:40→13:02)
[2017-06-03] MEDS: *HR* Enoxaparin 40 MG/0.4 ML SYRINGE SQ SCH (05:55)
[2017-06-03] MEDS: Nicotine 14 MG PATCH.TD24 TD SCH (08:24)
[2017-06-03 11:06] VITALS: BP 105/69
--- NOTE | 2017-06-03 13:48 | Discharge Summary ---
Date of Encounter: 06/03/17 Time of Encounter: 13:44 - Discharge Diagnosis (1) Abdominal pain Priority: Primary Status: Acute Qualifiers: Abdominal location: generalized Qualified Code(s): R10.84 - Generalized abdominal pain (2) Nausea & vomiting Priority: Primary Status: Acute Qualifiers: Vomiting Intractability: non-intractable Qualified Code(s): R11.2 - Nausea with vomiting, unspecified (3) Pyelonephritis Priority: Secondary Status: Acute (4) GERD (gastroesophageal reflux disease) Priority: Secondary Status: Acute Qualifiers: Qualified Code(s): K21.9 - Gastro-esophageal reflux disease without esophagitis (5) DVT prophylaxis Priority: Secondary Status: Acute - Discharge Medications Prescriptions: HYDROcodone/Acet 5/325 mg [Palmer 5-325 mg] 1 tab PO Q8H PRN #10 tab PRN Reason: Pain Nicotine Patch [Nicoderm] 14 mg TD DAILY #30 Omeprazole [PriLOSEC] 40 mg PO DAILY #30 cap Home Medications: Albuterol Sulfate [Proair Hfa] 2 puff IH Q4H PRN 05/27/17 [History] Metformin HCl [Metformin HCl ER] 500 mg PO QPM 05/27/17 [History] Ondansetron ODT [Zofran ODT] 4 mg SL Q4HR PRN #30 tab.rapdis 05/30/17 [Rx] EPINEPHrine [Epipen] 0.3 mg IM ONCE PRN 06/01/17 [History] Ciprofloxacin [Cipro] 500 mg PO BID 5 Days 06/03/17 [Rx] HYDROcodone/Acet 5/325 mg [Palmer 5-325 mg] 1 tab PO Q8H PRN #10 tab 06/03/17 [Rx ] Nicotine Patch [Nicoderm] 14 mg TD DAILY #30 06/03/17 [Rx] Omeprazole [PriLOSEC] 40 mg PO DAILY #30 cap 06/03/17 [Rx] Allergies/Adverse Reactions: 3 Allergy/AdvReac Type Severity Reaction Status Date / Time Amoxicillin Allergy Rash Verified 06/01/17 13:44 divalproex sodium Allergy Irritable Verified 06/01/17 13:44 [From Depakote] Penicillins Allergy Rash Verified 06/01/17 13:44 aspirin AdvReac Hypertensio Verified 06/01/17 13:44 n Procedures/tests Complete & Pending: Procedures Performed prior 72 hours Category Date Time Status CT abd pelvis wo no iv no oral [CT] Stat Cat Scan 06/01/17 18:31 Completed NM hepatobiliary w drug [NM] Routine Exams 06/02/17 12:24 Completed Date of admission: 06/01/17 16:25 Primary care physician: PCP NONE Consults: 06/02/17 10:30 Consult to Surgery [CONS] Routine Consulting Provider: Rodrigue Campo Reason for Consult: Acute RUQ abdominal pain Call Completed: Yes 06/02/17 15:52 Consult to Invasive Line Access Team [CONS] Routine Reason for Consult: limited vascular access Line Type: EPIV - Patient Status Disposition: Home, Self-Care Condition: Good Overall status at discharge: patient is back to baseline - Discharge Instructions Instructions: Diet for Ulcers and Gastritis (GEN), Gastroesophageal Reflux Disease (DC) Follow Up With: NONE,PCP [Primary Care Provider] - Additional Instructions: Need to f/u with PCP in one week - Diet and Activity Activity: increase activity as tolerated Diet: low fat, low cholesterol, other Hospital course: Ms. Pavon is a 22 year old female with a past medical history of anxiety, depression, irritable bowel syndrome, & pyelonephritis to which she was recently admitted and treated with ciprofloxacin and metronidazole at [facility]. Presents to [facility] today with RUQ, LLQ pain with radiation to her left lower back, as well as nausea and vomiting. Pt was admitted in the hospital and started her on IV fluids, IV analgseics and ante emetics. She was placed on NPO initially. Pt still c/o RUQ and epigastric pain, and her US of gallbladder showed mild sludge too. So we consulted surgery for further evaluation. She had HIDA scan done which did not show any acute GB pathology. Her symptoms improved today and she is tolerating PO intake well. So will d/c her home today in stable condition. Counseled the pt about diet modifications, GERD / PUD precautions. Started her on PPI. Counseled to quit smoking. Recommend to continue Cipro abx for another 5 days for her recent pyelonephritis. Also recommend to stop taking Ibuprofen for her pain, which might contributing to her epigastric pain. - Time Spent with Patient Total time spent providing and/or coordinating discharge services: - Constitutional Vitals: Temp Pulse Resp BP Pulse Ox 98.1 F 95 16 105/69 98 06/03/17 11:00 06/03/17 11:00 06/03/17 11:00 06/03/17 11:00 06/03/17 11:00 General appearance: Present: cooperative, A&O X 3, obese, answers questions appropriately - Head Head exam: Present: atraumatic, normal inspection - Respiratory Respiratory exam: Present: CTAB. Absent: accessory muscle use, rales, rhonchi, wheezes - Cardiovascular Cardiovascular exam: Present: RRR, +S1, +S2. Absent: diastolic murmur, gallop, rubs, systolic murmur - GI/Abdominal GI/Abdominal exam: Present: normal bowel sounds, soft, tenderness (mild epigastric and abdoul umbelical discomfort). Absent: rebound, rigid - Extremities Exam Extremities exam: Absent: calf tenderness, pedal edema, tenderness - Neurological Exam Neurological exam: Present: alert, oriented X3 - Psychiatric Psychiatric exam: Present: normal affect, normal mood
== END 2017-06-03 15:01 | disposition home or self-care (01) ==
LOC: 3ANU 13:36 → EMEROO 13:36 → 3ANU 17:15
PROVIDERS: ADMIT Family Medicine; ATTEND Family Medicine

== ENCOUNTER → 2019-10-19 20:10 | Observation (INO) ==
[2019-10-19 18:27] LABS: Bilirubin,Urine Negative (Negative); Blood,Urine Negative (Negative); Clarity,Urine Cloudy (Clear); Color,Urine Yellow (Yellow); Glucose,Urine (UA) Normal (Normal); Ketones,Urine Negative (Negative); Leukocyte Esterase,Urine Trace (Negative); Nitrite,Urine Negative (Negative); PH,Urine 7.5 pH Units (5.0-8.0); Protein,Urine Negative (Neg-Trace); Specific Gravity,Urine 1.017 (1.010-1.025); Urobilinogen,Urine Normal (Normal)
[2019-10-19 18:29] LABS: Bacteria,Urine Moderate per hpf (None-Few); Hyaline Casts,Urine None Seen per lpf (None-Few); RBC,Urine 0-3 per hpf (0-3); Squamous Epithelial Cell,Urine Many per lpf (None-Few)
[2019-10-19 18:48] LABS: Amphetamine Screen,Urine Negative ng/mL (Cutoff=1000); Barbiturate Screen,Urine Negative ng/mL (Cutoff=200); Benzodiazepines Screen,Urine Negative ng/mL (Cutoff=200); Cannabinoid Screen,Urine Negative ng/mL (Cutoff = 50); Cocaine Screen,Urine Negative ng/mL (Cutoff= 300); Opiate Screen,Urine Negative ng/mL (Cutoff=300); Phencyclidine Screen,Urine Negative ng/mL (Cutoff=25)
[2019-10-19 20:51] LABS: Trichomonas DNA Not Detected (Not Detect)
[2019-10-19 20:52] LABS: Candida DNA Not Detected (Not Detect); Gardnerella DNA Not Detected (Not Detect)
== END | disposition home or self-care (01) ==
LOC: 1NENULAB
PROVIDERS: ADMIT Obstetrics & Gynecology; ATTEND Obstetrics & Gynecology

== ENCOUNTER 2020-01-11 17:45 | Inpatient (IN) ==
[2020-01-11] MEDS ORDERED: Naloxone 0.4 MG/ML INJ IVP PRN ×2 (18:39→21:50)
[2020-01-11] MEDS ORDERED: Metoclopramide 10 MG/2 ML VIAL IVP PRN (18:39)
[2020-01-11] MEDS ORDERED: Azithromycin 500 MG in 0.9 % Sodium Chloride 250 ML IVPB ONE (18:39)
[2020-01-11] MEDS ORDERED: miSOPROStoL 25 MCG TABLET PO PRN (18:39)
[2020-01-11] MEDS ORDERED: Lidocaine 1% 20 ML MDV ID PRN (18:39)
[2020-01-11] MEDS ORDERED: *HR* FentaNYL (PF) 100 MCG/2 ML VIAL IVP PRN (18:39)
[2020-01-11] MEDS ORDERED: Famotidine 20 MG/2 ML VIAL IVP PRN (18:39)
[2020-01-11] MEDS ORDERED: Acetaminophen 325 MG TABLET PO ONE (18:44)
[2020-01-11 19:07] LABS: Basophils % 0.3 %; Eosinophils # 0.1 K/mcL (0.0-0.6); Eosinophils % 0.7 %; Hematocrit 31.8 % (35.3-44.9); Hemoglobin 10.3 g/dL (11.5-15.4); Immature Granulocytes % 1.3 % (0-4); Lymphocytes # 1.7 K/mcL (0.6-4.6); Lymphocytes % 16.1 %; Mean Corpuscular HGB Conc 32.4 g/dL (31.6-35.5); Mean Corpuscular Hemoglobin 28.3 pg (28.0-33.3); Mean Corpuscular Volume 87.4 fL (83.0-100.0); Mean Platelet Volume 10.5 fL (9.4-12.4); Monocytes # 0.6 K/mcL (0.0-1.3); Monocytes % 5.2 %; Neutrophils # 8.1 K/mcL (1.6-8.9); Platelet Count 227 K/mcL (140-400); Red Blood Count 3.64 M/mcL (3.82-4.97); Red Cell Distribution Width 14.7 % (11.5-14.5); Segmented Neutrophils % 76.4 %; White Blood Count 10.6 K/mcL (4.3-11.1)
[2020-01-11 19:14] LABS: Amphetamine Screen,Urine Negative ng/mL (Cutoff=1000); Barbiturate Screen,Urine Positive ng/mL (Cutoff=200); Benzodiazepines Screen,Urine Negative ng/mL (Cutoff=200); Cannabinoid Screen,Urine Negative ng/mL (Cutoff = 50); Cocaine Screen,Urine Negative ng/mL (Cutoff= 300); Opiate Screen,Urine Negative ng/mL (Cutoff=300); Phencyclidine Screen,Urine Negative ng/mL (Cutoff=25)
[2020-01-11] MEDS: Ondansetron 4 MG/2 ML VIAL IVP PRN (19:25)
[2020-01-11] MEDS ORDERED: *HR* FentaNYL (PF) 100 MCG/2 ML VIAL EP ONE (21:50)
[2020-01-11] MEDS ORDERED: EPHEDrine 50 MG/ML VIAL IVP PRN (21:50)
[2020-01-11] MEDS ORDERED: Ropivacaine/PF 0.2% 20 ML VIAL EP ONE (21:50)
[2020-01-11] MEDS ORDERED: Ondansetron 4 MG/2 ML VIAL IVP PRN (21:50)
[2020-01-11] MEDS: Ringers Solution, Lactated 1,000 ML IVC SCH (22:03)
[2020-01-11] MEDS ORDERED: *HR* FentaNYL (PF) 100 MCG/2 ML VIAL ONE (22:17)
[2020-01-11] MEDS: Epidural Premix (fent/bupiv) 110 ML EP SCH (22:38)
[2020-01-12] MEDS: Ondansetron 4 MG/2 ML VIAL IVP PRN ×2 (01:55→10:04)
[2020-01-12] MEDS ORDERED: Acetaminophen/Butalbital/CaffeineTABLET PO PRN ×2 (02:59→21:00)
[2020-01-12] MEDS ORDERED: Oxytocin 20 units/ LR 1000 mL 20 UNIT/1,000 ML BAG IVC SCH (03:15)
[2020-01-12] MEDS ORDERED: *HR* FentaNYL (PF) 100 MCG/2 ML VIAL ONE (04:58)
[2020-01-12] MEDS ORDERED: Ropivacaine/PF 0.2% 20 ML VIAL ONE (04:59)
[2020-01-12] MEDS: Epidural Premix (fent/bupiv) 110 ML EP SCH ×3 (05:32→15:50)
[2020-01-12] MEDS: Ringers Solution, Lactated 1,000 ML IVC SCH ×2 (07:42→14:43)
[2020-01-12] MEDS ORDERED: Bupivacaine-MPF 0.25% 10 ML VIAL ONE (11:40)
[2020-01-12] MEDS ORDERED: *HR* Phenylephrine 10 MG/ML VIAL ONE (11:40)
[2020-01-12] MEDS ORDERED: Lidocaine/EPI 1:200k 2% PF 20 ML VIAL ONE (16:15)
[2020-01-12] MEDS ORDERED: Ringers Solution, Lactated 1,000 ML ONE ×2 (16:15→17:53)
[2020-01-12] MEDS ORDERED: *HR* Oxytocin 10 UNIT/ML VIAL IM ONE ×2 (16:15→17:52)
[2020-01-12] MEDS ORDERED: *HR* Morphine Sulfate/PF 10 MG/10 ML AMPUL ONE (16:19)
[2020-01-12] MEDS ORDERED: Clindamycin 900 MG/50 ML 900 MG/50 ML IV.SOLN IVPB ONE (16:29)
[2020-01-12] MEDS ORDERED: Gentamicin 480 MG in 0.9 % Sodium Chloride 100 ML IVPB ONE (16:30)
[2020-01-12] MEDS ORDERED: Azithromycin 500 MG in 0.9 % Sodium Chloride 250 ML IVPB ONE (16:31)
[2020-01-12] MEDS ORDERED: *HR* OxyCODONE/APAP 5/325 TABLET PO PRN ×2 (16:45→21:00)
[2020-01-12] MEDS ORDERED: Ibuprofen 400 MG TABLET PO PRN ×2 (16:45→21:00)
[2020-01-12] MEDS ORDERED: Acetaminophen IV 1,000 MG/100 ML INFUS..BTL IVPB ONE ×3 (16:46→21:00)
[2020-01-12] MEDS ORDERED: Ketamine *HR* 500 MG/10 ML MDV ONE (17:17)
[2020-01-12] MEDS ORDERED: Ondansetron 4 MG/2 ML VIAL ONE (17:52)
[2020-01-12] MEDS ORDERED: Sennosides 8.6 MG TABLET PO PRN (21:00)
[2020-01-12] MEDS ORDERED: Naloxone 0.4 MG/ML INJ IVP PRN (21:00)
[2020-01-12] MEDS ORDERED: Metoclopramide 10 MG/2 ML VIAL IVP PRN (21:00)
[2020-01-12] MEDS ORDERED: Rho Immune Globulin 1,500 UNIT SYRINGE IM ONE (21:00)
[2020-01-12] MEDS ORDERED: Ringers Solution, Lactated 1,000 ML IVC SCH (21:00)
[2020-01-12] MEDS ORDERED: Ondansetron 4 MG/2 ML VIAL IVP PRN ×2 (21:00)
[2020-01-12] MEDS: hydrOXYzine pamoate 25 MG CAPSULE PO SCH (22:34)
[2020-01-12] MEDS: Oxytocin 20 units/ LR 1000 mL 20 UNIT/1,000 ML BAG IVC SCH (22:35)
[2020-01-13] MEDS: Ibuprofen 600 MG TABLET PO PRN ×3 (00:36→20:30)
[2020-01-13] MEDS: Oxytocin 20 units/ LR 1000 mL 20 UNIT/1,000 ML BAG IVC SCH (05:01)
[2020-01-13] MEDS: *HR* OxyCODONE/APAP 5/325 TABLET PO PRN ×2 (05:02→15:55)
[2020-01-13 05:26] LABS: Basophils % 0.2 %; Eosinophils % 0.3 %; Hematocrit 29.6 % (35.3-44.9); Hemoglobin 9.2 g/dL (11.5-15.4); Immature Granulocytes % 0.8 % (0-4); Lymphocytes % 16.7 %; Mean Corpuscular HGB Conc 31.1 g/dL (31.6-35.5); Mean Corpuscular Hemoglobin 27.2 pg (28.0-33.3); Mean Corpuscular Volume 87.6 fL (83.0-100.0); Mean Platelet Volume 10.2 fL (9.4-12.4); Monocytes # 0.5 K/mcL (0.0-1.3); Monocytes % 4.6 %; Neutrophils # 9.1 K/mcL (1.6-8.9); Platelet Count 236 K/mcL (140-400); Red Blood Count 3.38 M/mcL (3.82-4.97); Red Cell Distribution Width 14.9 % (11.5-14.5); Segmented Neutrophils % 77.4 %; White Blood Count 11.8 K/mcL (4.3-11.1)
[2020-01-13] MEDS: metroNIDAZOLE 500 MG TABLET PO SCH ×3 (08:51→20:31)
[2020-01-13] MEDS: Prenatal Vit/FA 1 EACH TABLET PO SCH (08:51)
[2020-01-13] MEDS: Simethicone 80 MG TAB.CHEW PO PRN ×2 (08:53→21:23)
[2020-01-13] MEDS: hydrOXYzine pamoate 25 MG CAPSULE PO SCH ×2 (08:54→20:30)
[2020-01-13] MEDS ORDERED: Prenatal Vit/FA 1 EACH TABLET PO SCH (09:00)
[2020-01-13] MEDS: acetaZOLAMIDE 250 MG TABLET PO SCH (10:53)
[2020-01-13] MEDS ORDERED: Rho Immune Globulin 1,500 UNIT SYRINGE IM ONE (19:33)
[2020-01-14] MEDS: *HR* OxyCODONE/APAP 5/325 TABLET PO PRN (03:05)
[2020-01-14] MEDS: metroNIDAZOLE 500 MG TABLET PO SCH (07:46)
[2020-01-14] MEDS: acetaZOLAMIDE 250 MG TABLET PO SCH (07:46)
[2020-01-14] MEDS: hydrOXYzine pamoate 25 MG CAPSULE PO SCH (07:47)
[2020-01-14] MEDS: Ibuprofen 600 MG TABLET PO PRN (07:47)
[2020-01-14] MEDS: Prenatal Vit/FA 1 EACH TABLET PO SCH (07:47)
[2020-01-14 07:53] VITALS: BP 102/54
== END 2020-01-14 09:33 | disposition home or self-care (01) | DRG 540 ==
LOC: 1NENULAB 17:45 → 1NENUOBS 01-12 20:54
PROVIDERS: ADMIT Student in an Organized Health Care Education/Training Program; ATTEND Student in an Organized Health Care Education/Training Program